=== PATIENT | female | born 1940 | race Two or more races ===

== ENCOUNTER 2019-04-06 06:37 | Inpatient (IN) | payer MEDICARE, MEDICAID ==
[~2019-04-06] VITALS: Ht 157.5 cm; Wt 64.9 kg
[2019-04-06] MEDS ORDERED: ASPIR 8181 MG ORAL (06:45)
[2019-04-06] MEDS ORDERED: PROPRANOLOL HCL40 MG ORAL (06:45)
[2019-04-06] MEDS ORDERED: LOSARTAN-HCTZ1 EACH ORAL (06:45)
[2019-04-06] MEDS ORDERED: ADALAT20 MG ORAL (06:45)
[2019-04-06 06:55] VITALS: BP 214/82
[2019-04-06] MEDS ORDERED: Albuterol ud Inhalation HHN ONE (07:00)
[2019-04-06] MEDS ORDERED: Aspirin Baby 81mg ORAL ONE (07:00)
[2019-04-06] MEDS ORDERED: Nitroglycerin Subl 0.4mg tab SL PRN (07:00)
[2019-04-06] MEDS ORDERED: Ipratropium 0.02% Inh Soln 2.5ml UD HHN ONE (07:00)
[2019-04-06] MEDS ORDERED: Metoprolol 5mg/5ml Inj IVP ONE (07:00)
[2019-04-06 07:18] LABS: BASOPHILS % (AUTO) 1.1 % (0.0-2.0); EOSINOPHILS % (AUTO) 1.9 % (0.0-3.0); HEMATOCRIT 37.1 % (37.0-47.0); HEMOGLOBIN 11.5 G/DL (12.0-16.0); MEAN CORPUSCULAR VOLUME 80 FL (80-99); MONOCYTES % (AUTO) 4.1 % (1.0-10.0); PLATELET COUNT 396 K/UL (150-450); RED BLOOD COUNT 4.62 M/UL (4.20-5.40); RED CELL DISTRIBUTION WIDTH 15.4 % (11.6-14.8); WHITE BLOOD COUNT 12.3 K/UL (4.8-10.8)
--- NOTE | 2019-04-06 07:18 | NUR ---
ER Nurse Note: Pt came from home with daughter c/o high blood pressure, chest pain, and difficulty breathing. Per daughter, pt had symptoms "for a while" but got worse 04/06 in AM. Pt BP at triage is >200/>100. Pt ambulatory. SLIV LT AC, patent. Labs sent; awaiting results. RT at bedside, breathing treatment administered. Endorsed care to oncoming shift for continutiy of care.
[2019-04-06 07:27] LABS: ANION GAP 8 mmol/L (5-15); BLOOD UREA NITROGEN 18 mg/dL (7-18); CALCIUM 9.4 MG/DL (8.5-10.1); CARBON DIOXIDE 24 MMOL/L (21-32); CHLORIDE 107 MMOL/L (98-107); SODIUM 139 MMOL/L (136-145)
--- NOTE | 2019-04-06 07:29 | Emergency Room Report ---
History of Present Illness General Chief Complaint: Hypertension Source: Patient Present Illness HPI Patient is a 78-year-old female presented after increased chest discomfort as well as shortness of breath since last night. Patient reports having increased orthopnea as well as choking sensation. She had prior history of valvular heart disease and had prior open heart surgery. Patient had been noted to be taking multiple medications for hypertension. She denies taking diuretics in the past. She reports having increased chest discomfort. She denies being a smoker. She states that she had been having shortness of breath throughout the night. She denies any leg pain or swelling. Allergies: Coded Allergies: No Known Allergies (Unverified , 04/06/19) Patient History Past Medical History: see triage record Reviewed Nursing Documentation: PMH: Agreed; PSxH: Agreed Nursing Documentation-PMH Past Medical History: No History, Except For Hx Hypertension: Yes Review of Systems Gastrointestinal: Reports: abdominal pain - epigastric pain Musculoskeletal: Reports: muscle pain - right shoulder All Other Systems: negative except mentioned in HPI Physical Exam Vital Signs Date Time Temp Pulse Resp B/P (MAP) Pulse Ox O2 Delivery O2 Flow Rate FiO2 04/06/19 06:39 98.4 86 18 214/82 (126) 95 Room Air Sp02 EP Interpretation: reviewed, normal General Appearance: normal inspection, no apparent distress, alert, GCS 15, Chronically Ill Head: atraumatic ENT: normal ENT inspection, hearing grossly normal, normal voice Neck: normal inspection, full range of motion, supple, no bony tend Respiratory: normal inspection, normal breath sounds, no respiratory distress, no retraction, no wheezing, crackles Cardiovascular #1: regular rate, rhythm, no edema Gastrointestinal: normal inspection, normal bowel sounds, non tender, soft, no guarding, no hernia Genitourinary: no CVA tenderness Musculoskeletal: normal inspection, back normal, normal range of motion Neurologic: normal inspection, alert, oriented x3, responsive, tool machine set up operator III-XII nml as tested, speech normal Psychiatric: normal inspection, judgement/insight normal, mood/affect normal Medical Decision Making Diagnostic Impression: Primary Impression: Chest pain Additional Impressions: CHF (congestive heart failure) Valvular heart disease Abnormal LFTs (liver function tests) ER Course Patient presented for chest pain shortness of breath. Differential diagnosis include was not limited to congestive heart failure, pneumonia, aortic dissection, cholecystitis, among others. because of complexity of patient's case laboratory testing and imaging studies were ordered. Patient was given breathing treatments as well as medications for hypertension. She was given aspirin as well as nitroglycerin. She was noted to have improvement in her symptoms after medications. Patient additionally reports having some right- sided shoulder pain for approximately 1 week. This is worse with movement and appears to be muscular in nature.Chest x-ray 1 view showed cardiomegaly with slight vascular congestion possibly due to CHF. Given the patient's prior cardiac history patient will be admitted for further evaluation of chest discomfort. She was given IV Lasix due to shortness of breath and possible CHF.Patient was noted to have improvement after medications. Dr. Marcelle Lozada was contacted for [facility] for inpatient management due to panel physician. Labs Test 04/06/19 07:00 White Blood Count 12.3 K/UL (4.8-10.8) Red Blood Count 4.62 M/UL (4.20-5.40) Hemoglobin 11.5 G/DL (12.0-16.0) Hematocrit 37.1 % (37.0-47.0) Mean Corpuscular Volume 80 FL (80-99) Mean Corpuscular Hemoglobin 24.9 PG (27.0-31.0) Mean Corpuscular Hemoglobin Concent 31.0 G/DL (32.0-36.0) Red Cell Distribution Width 15.4 % (11.6-14.8) Platelet Count 396 K/UL (150-450) Mean Platelet Volume 6.3 FL (6.5-10.1) Neutrophils (%) (Auto) 83.0 % (45.0-75.0) Lymphocytes (%) (Auto) 10.0 % (20.0-45.0) Monocytes (%) (Auto) 4.1 % (1.0-10.0) Eosinophils (%) (Auto) 1.9 % (0.0-3.0) Basophils (%) (Auto) 1.1 % (0.0-2.0) Prothrombin Time 10.0 SEC (9.30-11.50) Prothromb Time International Ratio 0.9 (0.9-1.1) Activated Partial Thromboplast Time 25 SEC (23-33) D-Dimer 0.98 mg/L FEU (0.00-0.49) Sodium Level 139 MMOL/L (136-145) Potassium Level 4.0 MMOL/L (3.5-5.1) Chloride Level 107 MMOL/L (98-107) Carbon Dioxide Level 24 MMOL/L (21-32) Anion Gap 8 mmol/L (5-15) Blood Urea Nitrogen 18 mg/dL (7-18) Creatinine 1.0 MG/DL (0.55-1.30) Estimat Glomerular Filtration Rate mL/min (>60) Glucose Level 166 MG/DL (74-106) Calcium Level 9.4 MG/DL (8.5-10.1) Total Bilirubin 0.4 MG/DL (0.2-1.0) Aspartate Amino Transf (AST/SGOT) 113 U/L (15-37) Alanine Aminotransferase (ALT/SGPT) 141 U/L (12-78) Alkaline Phosphatase 141 U/L (46-116) Total Creatine Kinase 72 U/L (26-308) Creatine Kinase MB 1.4 NG/ML (0.0-3.6) Creatine Kinase MB Relative Index 1.9 Troponin I 0.093 ng/mL (0.000-0.056) Pro-B-Type Natriuretic Peptide 5831 pg/mL (0-125) Total Protein 8.0 G/DL (6.4-8.2) Albumin 3.7 G/DL (3.4-5.0) Globulin 4.3 g/dL Albumin/Globulin Ratio 0.9 (1.0-2.7) Lipase 140 U/L (73-393) EKG Diagnostic Results Rate: normal Rhythm: NSR ST Segments: no acute changes Last Vital Signs Date Time Temp Pulse Resp B/P (MAP) Pulse Ox O2 Delivery O2 Flow Rate FiO2 04/06/19 07:24 176/70 04/06/19 07:23 78 04/06/19 06:55 18 Room Air 04/06/19 06:55 98.4 95 Status: improved Disposition: ADMITTED INPATIENT Condition: Stable Yobany Benavidez MD Apr 06, 2019 07:29
[2019-04-06 07:31] LABS: INR 0.9 (0.9-1.1)
[2019-04-06 07:40] LABS: ALANINE AMINOTRANSFERASE 141 U/L (12-78); ALBUMIN 3.7 G/DL (3.4-5.0); ALBUMIN/GLOBULIN RATIO 0.9 (1.0-2.7); ALKALINE PHOSPHATASE 141 U/L (46-116); ASPARTATE AMINO TRANSFERASE 113 U/L (15-37); BILIRUBIN,TOTAL 0.4 MG/DL (0.2-1.0); CKMB 1.4 NG/ML (0.0-3.6); CREATINE KINASE 72 U/L (26-308)
[2019-04-06] MEDS ORDERED: Acetaminophen 500mg (ES) tab ORAL ONE (07:45)
--- NOTE | 2019-04-06 07:45 | Diagnostic Imaging Report ---
EXAM: XR Chest, 1 View CLINICAL HISTORY: SOB TECHNIQUE: Frontal view of the chest. COMPARISON: none FINDINGS: Moderate cardiomegaly. Aortic valvular prosthesis. Sternotomy wires. Mediastinal surgical clips. No mediastinal widening or shift. Lungs show coarse linear densities at the bilateral bases, left greater than right. No pleural effusion or pneumothorax. No focal infiltrates. Bony thorax intact. No free air under the diaphragms. IMPRESSION: Cardiomegaly without findings of overt CHF. Linear densities of the lung bases could reflect mild pulmonary vascular congestion.
--- NOTE | 2019-04-06 08:08 | NUR ---
ED Nurse Note: pt reassessed, pt denies chest pain, denies sob, pt stated the breathing treatment helped a lot. pt vss. will continue to monitor.
[2019-04-06 08:13] VITALS: BP 139/55
--- NOTE | 2019-04-06 08:45 | NUR ---
ED Nurse Note: Called Telemetry unit for report. per Marce at telemetry unit, CN has not asssigned admitting nurse yet. they will call me back.
[2019-04-06 09:05] VITALS: BP 147/54
--- NOTE | 2019-04-06 09:11 | NUR ---
ED Nurse Note: report given to JACKIE Beaver
--- NOTE | 2019-04-06 09:11 | NUR ---
ED Nurse Note: pt was tranfered to the tele floor, 205-2 with stable vs and with all belongings
[2019-04-06] MEDS ORDERED: Albuterol/Ipratropium 3ml neb HHN PRN (09:15)
[2019-04-06] MEDS ORDERED: Heparin 25,000u/D5W 500ml 500 ML IV SCH ×3 (09:15→18:02)
[2019-04-06] MEDS ORDERED: LORazepam Inj 2mg/ml 1ml IV PRN (09:15)
[2019-04-06] MEDS ORDERED: Milk of Magnesia 30ml Ud ORAL PRN (09:15)
--- NOTE | 2019-04-06 09:15 | History and Physical ---
History of Present Illness General Date patient seen: Apr 06, 2019 Reason for Hospitalization: Hypertension Present Illness HPI 78 year old female with PMH of HTN, valvular heart disease and HLD presented with complaints of chest pressure and SOB x 1 day. States symptoms started suddenly, worse when ambulating, states pressure is midsternum, nonradiating, nothing exacerbates or improves. Pt also states that SOB is worse when lying down, improved with sitting up. In [facility] chest dx with CM and pulmonary infiltrates. Pt received Lasix IV with improvement in symptoms. Allergies: Coded Allergies: No Known Allergies (Unverified , 04/06/19) Medication History Scheduled Aspirin* (Aspir 81*), 81 MG ORAL DAILY, (Reported) Losartan/Hydrochlorothiazide (Losartan-Hctz 100-12.5 Mg Tab), Unknown Dose ORAL DAILY, (Reported) Nifedipine (Nifedipine*), 20 MG ORAL EVERY 6 HOURS, (Reported) Propranolol Hcl* (Inderal*), 40 MG ORAL THREE TIMES A DAY, (Reported) Patient History Healthcare decision maker Resuscitation status Advanced Directive on File Review of Systems ROS Narrative General ROS: no weight loss or fever Psychological ROS: no depression or mood changes, no memory loss Ophthalmic ROS: no visual changes or eye irritation ENT ROS: no nasal congestion, hearing loss, dizziness Allergy and Immunology ROS: no allergic symptoms or urticaria Hematological and Lymphatic ROS: no swollen glands, unusual bleeding or bruising Endocrine ROS: no polyuria, polydipsia, weight changes, temperature intolerance Respiratory ROS: no cough, orthopnea Cardiovascular ROS: chest pressure, orthopnea Gastrointestinal ROS: no abdominal pain, change in bowel habits, or black or bloody stools Musculoskeletal ROS: no myalgias or arthralgias Neurological ROS: no TIA or stroke symptoms Dermatological ROS: no new or changing skin lesions, rashes or pruritis Physical Exam Last 24 Hour Vital Signs Date Time Temp Pulse Resp B/P (MAP) Pulse Ox O2 Delivery O2 Flow Rate FiO2 04/06/19 09:05 59 16 147/54 96 Room Air 04/06/19 08:22 98.4 04/06/19 08:13 60 16 139/55 95 Room Air 04/06/19 07:25 83 24 100 Room Air 21 04/06/19 07:24 176/70 04/06/19 07:23 78 176/70 04/06/19 07:15 71 17 99 Room Air 21 04/06/19 06:55 86 18 Room Air 04/06/19 06:55 98.4 79 18 214/82 95 Room Air 04/06/19 06:39 98.4 86 18 214/82 (126) 95 Room Air Laboratory Tests Test 04/06/19 07:00 White Blood Count 12.3 K/UL (4.8-10.8) H Red Blood Count 4.62 M/UL (4.20-5.40) Hemoglobin 11.5 G/DL (12.0-16.0) L Hematocrit 37.1 % (37.0-47.0) Mean Corpuscular Volume 80 FL (80-99) Mean Corpuscular Hemoglobin 24.9 PG (27.0-31.0) L Mean Corpuscular Hemoglobin Concent 31.0 G/DL (32.0-36.0) L Red Cell Distribution Width 15.4 % (11.6-14.8) H Platelet Count 396 K/UL (150-450) Mean Platelet Volume 6.3 FL (6.5-10.1) L Neutrophils (%) (Auto) 83.0 % (45.0-75.0) H Lymphocytes (%) (Auto) 10.0 % (20.0-45.0) L Monocytes (%) (Auto) 4.1 % (1.0-10.0) Eosinophils (%) (Auto) 1.9 % (0.0-3.0) Basophils (%) (Auto) 1.1 % (0.0-2.0) Prothrombin Time 10.0 SEC (9.30-11.50) Prothromb Time International Ratio 0.9 (0.9-1.1) Activated Partial Thromboplast Time 25 SEC (23-33) D-Dimer 0.98 mg/L FEU (0.00-0.49) H Sodium Level 139 MMOL/L (136-145) Potassium Level 4.0 MMOL/L (3.5-5.1) Chloride Level 107 MMOL/L (98-107) Carbon Dioxide Level 24 MMOL/L (21-32) Anion Gap 8 mmol/L (5-15) Blood Urea Nitrogen 18 mg/dL (7-18) Creatinine 1.0 MG/DL (0.55-1.30) Estimat Glomerular Filtration Rate mL/min (>60) Glucose Level 166 MG/DL (74-106) H Calcium Level 9.4 MG/DL (8.5-10.1) Total Bilirubin 0.4 MG/DL (0.2-1.0) Aspartate Amino Transf (AST/SGOT) 113 U/L (15-37) H Alanine Aminotransferase (ALT/SGPT) 141 U/L (12-78) H Alkaline Phosphatase 141 U/L (46-116) H Total Creatine Kinase 72 U/L (26-308) Creatine Kinase MB 1.4 NG/ML (0.0-3.6) Creatine Kinase MB Relative Index 1.9 Troponin I 0.093 ng/mL (0.000-0.056) Pro-B-Type Natriuretic Peptide 5831 pg/mL (0-125) H Total Protein 8.0 G/DL (6.4-8.2) Albumin 3.7 G/DL (3.4-5.0) Globulin 4.3 g/dL Albumin/Globulin Ratio 0.9 (1.0-2.7) L Lipase 140 U/L (73-393) Height (Feet): 5 Height (Inches): 2.00 Weight (Pounds): 140 Medications Current Medications Medications (Trade) Dose Ordered Sig/Dexter Route PRN Reason Start Time Stop Time Status Last Admin Dose Admin Nitroglycerin (Ntg) 0.4 mg Q5M PRN SL Prn Chest Pain 04/06/19 07:00 05/06/19 06:59 04/06/19 07:24 Objective Narrative General appearance: alert, cooperative, no distress, appears stated age Head: Normocephalic, without obvious abnormality, atraumatic Eyes: conjunctivae/corneas clear. PERRL, EOM's intact. Fundi benign Throat: Lips, mucosa, and tongue normal. Teeth and gums normal Neck: supple, symmetrical, trachea midline, no adenopathy, thyroid: not enlarged , symmetric, no tenderness/mass/nodules, no carotid bruit and no JVD Lungs: clear to auscultation bilaterally Heart: regular rate and rhythm, S1, S2 normal, no murmur, click, rub or gallop Abdomen: soft, non-tender. Bowel sounds normal. No masses, no organomegaly Extremities: extremities normal, atraumatic, no cyanosis, +1 b/l LEedema Pulses: 2+ and symmetric Skin: Skin color, texture, turgor normal. No rashes or lesions Neurologic: Grossly normal Assessment/Plan Assessment/Plan: Pt admitted for chest pain r/o ACS and acute CHF exacerbation #SOB likely 2/2 CHF exacerbation #Chest pain 2/2 ACS -Cardiology consulted - Dr. Lambert -Pulmonary consulted (Dr. Garcia) -serial trop and EKG - -cont tele -Cont Lasix 40mg IV daily -daily weights -i/o -fluid restriction -pending 2D echo #HTN -Cont Hyzaar 50/12.5 -hydralazine PRN Code: Agricultural Service Worker of note may not reflect time of Marcelle Jaramillo MD Apr 06, 2019 09:15
[2019-04-06 09:25] VITALS: BP 141/63
[2019-04-06] MEDS ORDERED: HYDROcodone/Acetamin 5/325 tab ORAL PRN ×2 (09:30)
--- NOTE | 2019-04-06 12:47 | Consultation ---
History of Present Illness General Date patient seen: Apr 06, 2019 Reason for Hospitalization: Hypertension Present Illness HPI This is a very pleasant 78-year-old female with multiple medical comorbidities and history of open heart surgery for valvular disease who presented to the emergency department [facility] complaining of shortness of breath, respiratory difficulty, feeling of choking. On admission patient was identified to have a leukocytosis and abnormal LFTs. Surgery called to evaluate. Patient seen, patient evaluated, chart reviewed. Patient states she did have some abdominal discomfort but has resolved now. Currently no nausea vomiting fever or chills. States that the respiratory issues have subsided with medication she was given but she does not feel 100% yet. Allergies: Coded Allergies: No Known Allergies (Unverified , 04/06/19) Medication History Scheduled Aspirin* (Aspir 81*), 81 MG ORAL DAILY, (Reported) Losartan/Hydrochlorothiazide (Losartan-Hctz 100-12.5 Mg Tab), Unknown Dose ORAL DAILY, (Reported) Nifedipine (Nifedipine*), 20 MG ORAL EVERY 6 HOURS, (Reported) Propranolol Hcl* (Inderal*), 40 MG ORAL THREE TIMES A DAY, (Reported) Patient History History Provided By: Patient, Medical Record, PMD Healthcare decision maker Resuscitation status Full Code Advanced Directive on File Past Medical/Surgical History Past Medical/Surgical History: (1) CHF (congestive heart failure) (2) Chest pain (3) Valvular heart disease (4) Abnormal LFTs (liver function tests) Review of Systems Review of Symptoms General ROS: no weight loss or fever Psychological ROS: no depression or mood changes, no memory loss Ophthalmic ROS: no visual changes or eye irritation ENT ROS: no nasal congestion, hearing loss, dizziness Allergy and Immunology ROS: no allergic symptoms or urticaria Hematological and Lymphatic ROS: no swollen glands, unusual bleeding or bruising Endocrine ROS: no polyuria, polydipsia, weight changes, temperature intolerance Respiratory ROS: no cough, shortness of breath, or wheezing Cardiovascular ROS: no chest pain or dyspnea on exertion Gastrointestinal ROS: denies abdominal pain, no bright red blood in stool. Musculoskeletal ROS: no myalgias or arthralgias Neurological ROS: no TIA or stroke symptoms Dermatological ROS: no new or changing skin lesions, rashes or pruritis Physical Exam Physical Exam General appearance: alert, cooperative, no distress, appears stated age Head: Normocephalic, without obvious abnormality, atraumatic Eyes: conjunctivae/corneas clear. PERRL, EOM's intact. Fundi benign Throat: Lips, mucosa, and tongue normal. Teeth and gums normal Neck: supple, symmetrical, trachea midline, no adenopathy, thyroid: not enlarged, symmetric, no tenderness/mass/nodules, no carotid bruit and no JVD Lungs: clear to auscultation bilaterally Heart: regular rate and rhythm, S1, S2 normal, no murmur, click, rub or gallop Abdomen: soft, non-tender. Bowel sounds normal. No masses, no organomegaly Extremities: extremities normal, atraumatic, no cyanosis or edema Pulses: 2+ and symmetric Skin: Skin color, texture, turgor normal. No rashes or lesions Neurologic: Grossly normal Last 24 Hour Vital Signs Date Time Temp Pulse Resp B/P (MAP) Pulse Ox O2 Delivery O2 Flow Rate FiO2 04/06/19 12:00 58 04/06/19 10:38 Room Air 04/06/19 09:11 98.4 59 16 147/54 96 Room Air 21 04/06/19 09:05 59 16 147/54 96 Room Air 04/06/19 08:22 98.4 04/06/19 08:13 60 16 139/55 95 Room Air 04/06/19 07:25 83 24 100 Room Air 21 04/06/19 07:24 176/70 04/06/19 07:23 78 176/70 04/06/19 07:15 71 17 99 Room Air 04/06/19 06:55 86 18 Room Air 04/06/19 06:55 98.4 79 18 214/82 95 Room Air 04/06/19 06:39 98.4 86 18 214/82 (126) 95 Room Air Laboratory Tests Test 04/06/19 07:00 04/06/19 09:45 04/06/19 11:50 White Blood Count 12.3 K/UL (4.8-10.8) H Red Blood Count 4.62 M/UL (4.20-5.40) Hemoglobin 11.5 G/DL (12.0-16.0) L Hematocrit 37.1 % (37.0-47.0) Mean Corpuscular Volume 80 FL (80-99) Mean Corpuscular Hemoglobin 24.9 PG (27.0-31.0) L Mean Corpuscular Hemoglobin Concent 31.0 G/DL (32.0-36.0) L Red Cell Distribution Width 15.4 % (11.6-14.8) H Platelet Count 396 K/UL (150-450) Mean Platelet Volume 6.3 FL (6.5-10.1) L Neutrophils (%) (Auto) 83.0 % (45.0-75.0) H Lymphocytes (%) (Auto) 10.0 % (20.0-45.0) L Monocytes (%) (Auto) 4.1 % (1.0-10.0) Eosinophils (%) (Auto) 1.9 % (0.0-3.0) Basophils (%) (Auto) 1.1 % (0.0-2.0) Prothrombin Time 10.0 SEC (9.30-11.50) Prothromb Time International Ratio 0.9 (0.9-1.1) Activated Partial Thromboplast Time 25 SEC (23-33) 26 SEC (23-33) D-Dimer 0.98 mg/L FEU (0.00-0.49) H Sodium Level 139 MMOL/L (136-145) Potassium Level 4.0 MMOL/L (3.5-5.1) Chloride Level 107 MMOL/L (98-107) Carbon Dioxide Level 24 MMOL/L (21-32) Anion Gap 8 mmol/L (5-15) Blood Urea Nitrogen 18 mg/dL (7-18) Creatinine 1.0 MG/DL (0.55-1.30) Estimat Glomerular Filtration Rate mL/min (>60) Glucose Level 166 MG/DL (74-106) H Calcium Level 9.4 MG/DL (8.5-10.1) Total Bilirubin 0.4 MG/DL (0.2-1.0) Aspartate Amino Transf (AST/SGOT) 113 U/L (15-37) H Alanine Aminotransferase (ALT/SGPT) 141 U/L (12-78) H Alkaline Phosphatase 141 U/L (46-116) H Total Creatine Kinase 72 U/L (26-308) Creatine Kinase MB 1.4 NG/ML (0.0-3.6) Creatine Kinase MB Relative Index 1.9 Troponin I 0.093 ng/mL (0.000-0.056) 0.500 ng/mL (0.000-0.056) Pro-B-Type Natriuretic Peptide 5831 pg/mL (0-125) H Total Protein 8.0 G/DL (6.4-8.2) Albumin 3.7 G/DL (3.4-5.0) Globulin 4.3 g/dL Albumin/Globulin Ratio 0.9 (1.0-2.7) L Lipase 140 U/L (73-393) Height (Feet): 5 Height (Inches): 2.00 Weight (Pounds): 140 Medications Current Medications Medications (Trade) Dose Ordered Sig/Dexter Route PRN Reason Start Time Stop Time Status Last Admin Dose Admin Acetaminophen (Tylenol) 650 mg Q4H PRN ORAL Mild Pain (Pain Scale 1-3) 04/06/19 09:15 05/06/19 09:14 Acetaminophen/ Hydrocodone Bitart ([place] 5/325) 1 tab Q6H PRN ORAL Moderate Pain (Pain Scale 4-6) 04/06/19 09:30 04/13/19 09:29 Acetaminophen/ Hydrocodone Bitart ([place] 5/325) 2 tab Q6H PRN ORAL Severe Pain (Pain Scale 7-10) 04/06/19 09:30 04/13/19 09:29 Albuterol/ Ipratropium (Albuterol/ Ipratropium) 3 ml Q6H PRN HHN Shortness of Breath 04/06/19 09:15 04/11/19 09:14 Aspirin (Ecotrin) 81 mg DAILY ORAL 04/07/19 09:00 05/07/19 08:59 Bisacodyl (Dulcolax) 10 mg DAILYPRN PRN RECTAL Constipation 04/06/19 09:15 05/06/19 09:14 Diphenhydramine HCl (Benadryl) 25 mg Q6H PRN ORAL Itching/Pruritis 04/06/19 09:15 05/06/19 09:14 Furosemide (Lasix) 40 mg DAILY IV 04/07/19 09:00 05/07/19 08:59 HCTZ/Losartan Potassium (Hyzaar 50-12.5) 2 tab DAILY ORAL 04/07/19 09:00 05/07/19 08:59 Hydralazine HCl (Apresoline) 10 mg Q4H PRN IV For High Blood Pressure 04/06/19 09:30 05/06/19 09:29 Lorazepam (Ativan 2mg/ml 1ml) 0.5 mg Q4H PRN IV For Anxiety 04/06/19 09:15 04/13/19 09:14 Magnesium Hydroxide (Mom) 30 ml HSPRN PRN ORAL Constipation 04/06/19 09:15 05/06/19 09:14 Ondansetron HCl (Zofran) 4 mg Q6H PRN IVP Nausea & Vomiting 04/06/19 09:15 05/06/19 09:14 Assessment/Plan Problem List: (1) Abnormal LFTs (liver function tests) Assessment & Plan: This is a 78-year-old female with history as per HPI who was identified to have a leukocytosis and abnormal LFTs. She did have abdominal discomfort which has since resolved. Currently no nausea vomiting fever chills. Normal bowel movements and passing flatus. Etiology of abnormal LFTs unknown. AST ALT alk phos elevated but T bili normal. Potentially medication related versus hepatic/biliary. Recommend ultrasound abdomen to evaluate liver and biliary tree IV fluids Antibiotics as per infectious disease Pending micro Trend labs We will follow with recommendations Thank you for this consultation allowing me to participate in patient's care ICD Codes: R94.5 - Abnormal results of liver function studies SNOMED: 431565849 (2) Valvular heart disease ICD Codes: I38 - Endocarditis, valve unspecified SNOMED: 899966 (3) CHF (congestive heart failure) ICD Codes: I50.9 - Heart failure, unspecified SNOMED: 39214417 (4) Chest pain ICD Codes: R07.9 - Chest pain, unspecified SNOMED: 24570600 Skip Cm Apr 06, 2019 12:47
--- NOTE | 2019-04-06 12:56 | NUR ---
NURSE NOTES: notified Dr. Jaramillo of troponin level. Per Dr. Jaramillo repeat troponin in 4 hours with ekg
--- NOTE | 2019-04-06 15:06 | NUR ---
CASE MANAGEMENT: INITIAL REVIEW 78 YO F PRESENTED TO OUR ED FROM HOME CC: SOB. GENERALIZED PRESSURE ON HER CHEST PMHx: HTN. open heart surgery for valvular disease. SI:CP. POSSIBLE CHF. T 98.4 HR 86 RR 18 B/P 214/82 SATS 95% ON RA WBC 12.3 GLU 166 AST 113 ALT 141 ALP 141 TROPONIN 0.093 AND 0.5 BNP 5831 IS: DUO NEB HHN X1 ASA PO X1 NITRO SL X1 LOPRESSOR IV X1 LASIX IV X1 CXR IMPRESSION: Cardiomegaly without findings of overt CHF. Linear densities of the lung bases could reflect mild pulmonary vascular congestion. PATIENT ADMITTED TO TELE 04/06/2019 @ 0937 DCP: PATIENT TO BE DISCHARGED TO HOME ONCE MEDICALLY CLEARED. PLAN OF CARE: 2D ECHO 25-30% CARDIO EVAL ID EVAL Addendum: 04/06/19 at 1832 by Ira Gore CM [employer]
[2019-04-06 16:00] VITALS: BP 135/58
--- NOTE | 2019-04-06 16:12 | Consultation ---
History of Present Illness General Date patient seen: Apr 06, 2019 Reason for Hospitalization: Hypertension Present Illness HPI 78-year-old female with multiple medical comorbidities and history of open heart surgery for valvular disease who presented to the emergency department [facility] complaining of shortness of breath, respiratory difficulty, feeling of choking. On admission patient was identified to have a leukocytosis and abnormal LFTs. Surgery called to evaluate. Patient seen, patient evaluated, chart reviewed. Patient states she did have some abdominal discomfort but has resolved now. Reports right sided neck pain radiating to shoulder Allergies: Coded Allergies: No Known Allergies (Unverified , 04/06/19) Medication History Scheduled Aspirin* (Aspir 81*), 81 MG ORAL DAILY, (Reported) Losartan/Hydrochlorothiazide (Losartan-Hctz 100-12.5 Mg Tab), Unknown Dose ORAL DAILY, (Reported) Nifedipine (Nifedipine*), 20 MG ORAL EVERY 6 HOURS, (Reported) Propranolol Hcl* (Inderal*), 40 MG ORAL THREE TIMES A DAY, (Reported) Patient History Healthcare decision maker Resuscitation status Full Code Advanced Directive on File Review of Systems Review of Symptoms General ROS: no weight loss or fever Psychological ROS: no depression or mood changes, no memory loss Ophthalmic ROS: no visual changes or eye irritation ENT ROS: no nasal congestion, hearing loss, dizziness Allergy and Immunology ROS: no allergic symptoms or urticaria Hematological and Lymphatic ROS: no swollen glands, unusual bleeding or bruising Endocrine ROS: no polyuria, polydipsia, weight changes, temperature intolerance Respiratory ROS: no cough, shortness of breath, or wheezing Cardiovascular ROS: no chest pain or dyspnea on exertion Gastrointestinal ROS: denies abdominal pain, bright red blood in stool. Musculoskeletal ROS: no myalgias or arthralgias Neurological ROS: no TIA or stroke symptoms Dermatological ROS: no new or changing skin lesions, rashes or pruritis Physical Exam Physical Exam General appearance: alert, cooperative, no distress, appears stated age Head: Normocephalic, without obvious abnormality, atraumatic Eyes: conjunctivae/corneas clear. PERRL, EOM's intact. Fundi benign Throat: Lips, mucosa, and tongue normal. Teeth and gums normal Neck: supple, symmetrical, trachea midline, no adenopathy, thyroid: not enlarged, symmetric, no tenderness/mass/nodules, no carotid bruit and no JVD Lungs: clear to auscultation bilaterally Heart: regular rate and rhythm, S1, S2 normal, no murmur, click, rub or gallop Abdomen: soft, non-tender. Bowel sounds normal. No masses, no organomegaly Extremities: extremities normal, atraumatic, no cyanosis or edema Pulses: 2+ and symmetric Skin: Skin color, texture, turgor normal. No rashes or lesions Neurologic: Grossly normal Last 24 Hour Vital Signs Date Time Temp Pulse Resp B/P (MAP) Pulse Ox O2 Delivery O2 Flow Rate FiO2 04/06/19 12:00 58 04/06/19 10:38 Room Air 04/06/19 09:11 98.4 59 16 147/54 96 Room Air 21 04/06/19 09:05 59 16 147/54 96 Room Air 04/06/19 08:22 98.4 04/06/19 08:13 60 16 139/55 95 Room Air 04/06/19 07:25 83 24 100 Room Air 04/06/19 07:24 176/70 04/06/19 07:23 78 176/70 04/06/19 07:15 71 17 99 Room Air 04/06/19 06:55 86 18 Room Air 04/06/19 06:55 98.4 79 18 214/82 95 Room Air 04/06/19 06:39 98.4 86 18 214/82 (126) 95 Room Air Laboratory Tests Test 04/06/19 07:00 04/06/19 09:45 04/06/19 11:50 04/06/19 15:50 White Blood Count 12.3 K/UL (4.8-10.8) H Red Blood Count 4.62 M/UL (4.20-5.40) Hemoglobin 11.5 G/DL (12.0-16.0) L Hematocrit 37.1 % (37.0-47.0) Mean Corpuscular Volume 80 FL (80-99) Mean Corpuscular Hemoglobin 24.9 PG (27.0-31.0) L Mean Corpuscular Hemoglobin Concent 31.0 G/DL (32.0-36.0) L Red Cell Distribution Width 15.4 % (11.6-14.8) H Platelet Count 396 K/UL (150-450) Mean Platelet Volume 6.3 FL (6.5-10.1) L Neutrophils (%) (Auto) 83.0 % (45.0-75.0) H Lymphocytes (%) (Auto) 10.0 % (20.0-45.0) L Monocytes (%) (Auto) 4.1 % (1.0-10.0) Eosinophils (%) (Auto) 1.9 % (0.0-3.0) Basophils (%) (Auto) 1.1 % (0.0-2.0) Prothrombin Time 10.0 SEC (9.30-11.50) Prothromb Time International Ratio 0.9 (0.9-1.1) Activated Partial Thromboplast Time 25 SEC (23-33) 26 SEC (23-33) D-Dimer 0.98 mg/L FEU (0.00-0.49) H Sodium Level 139 MMOL/L (136-145) Potassium Level 4.0 MMOL/L (3.5-5.1) Chloride Level 107 MMOL/L (98-107) Carbon Dioxide Level 24 MMOL/L (21-32) Anion Gap 8 mmol/L (5-15) Blood Urea Nitrogen 18 mg/dL (7-18) Creatinine 1.0 MG/DL (0.55-1.30) Estimat Glomerular Filtration Rate mL/min (>60) Glucose Level 166 MG/DL (74-106) H Calcium Level 9.4 MG/DL (8.5-10.1) Total Bilirubin 0.4 MG/DL (0.2-1.0) Aspartate Amino Transf (AST/SGOT) 113 U/L (15-37) H Alanine Aminotransferase (ALT/SGPT) 141 U/L (12-78) H Alkaline Phosphatase 141 U/L (46-116) H Total Creatine Kinase 72 U/L (26-308) Creatine Kinase MB 1.4 NG/ML (0.0-3.6) Creatine Kinase MB Relative Index 1.9 Troponin I 0.093 ng/mL (0.000-0.056) 0.500 ng/mL (0.000-0.056) Pending Pro-B-Type Natriuretic Peptide 5831 pg/mL (0-125) H Total Protein 8.0 G/DL (6.4-8.2) Albumin 3.7 G/DL (3.4-5.0) Globulin 4.3 g/dL Albumin/Globulin Ratio 0.9 (1.0-2.7) L Lipase 140 U/L (73-393) Height (Feet): 5 Height (Inches): 2.00 Weight (Pounds): 140 Medications Current Medications Medications (Trade) Dose Ordered Sig/Dexter Route PRN Reason Start Time Stop Time Status Last Admin Dose Admin Acetaminophen (Tylenol) 650 mg Q4H PRN ORAL Mild Pain (Pain Scale 1-3) 04/06/19 09:15 05/06/19 09:14 Acetaminophen/ Hydrocodone Bitart ([place] 5/325) 1 tab Q6H PRN ORAL Moderate Pain (Pain Scale 4-6) 04/06/19 09:30 04/13/19 09:29 Acetaminophen/ Hydrocodone Bitart ([place] 5/325) 2 tab Q6H PRN ORAL Severe Pain (Pain Scale 7-10) 04/06/19 09:30 04/13/19 09:29 Albuterol/ Ipratropium (Albuterol/ Ipratropium) 3 ml Q6H PRN HHN Shortness of Breath 04/06/19 09:15 04/11/19 09:14 Aspirin (Ecotrin) 81 mg DAILY ORAL 04/07/19 09:00 05/07/19 08:59 Bisacodyl (Dulcolax) 10 mg DAILYPRN PRN RECTAL Constipation 04/06/19 09:15 05/06/19 09:14 Diphenhydramine HCl (Benadryl) 25 mg Q6H PRN ORAL Itching/Pruritis 04/06/19 09:15 05/06/19 09:14 Furosemide (Lasix) 40 mg DAILY IV 04/07/19 09:00 05/07/19 08:59 HCTZ/Losartan Potassium (Hyzaar 50-12.5) 2 tab DAILY ORAL 04/07/19 09:00 05/07/19 08:59 Hydralazine HCl (Apresoline) 10 mg Q4H PRN IV For High Blood Pressure 04/06/19 09:30 05/06/19 09:29 Lorazepam (Ativan 2mg/ml 1ml) 0.5 mg Q4H PRN IV For Anxiety 04/06/19 09:15 04/13/19 09:14 Magnesium Hydroxide (Mom) 30 ml HSPRN PRN ORAL Constipation 04/06/19 09:15 05/06/19 09:14 Ondansetron HCl (Zofran) 4 mg Q6H PRN IVP Nausea & Vomiting 04/06/19 09:15 05/06/19 09:14 Assessment/Plan Problem List: (1) CHF (congestive heart failure) ICD Codes: I50.9 - Heart failure, unspecified SNOMED: 30112907 (2) Chest pain ICD Codes: R07.9 - Chest pain, unspecified SNOMED: 77348579 (3) Valvular heart disease ICD Codes: I38 - Endocarditis, valve unspecified SNOMED: 537586 (4) Abnormal LFTs (liver function tests) ICD Codes: R94.5 - Abnormal results of liver function studies SNOMED: 950593389 Assessment/Plan: Acute encephalopathy - likely metabolic rule out hepatic Neck spasms Work up ongoing Delirium precautions Monitor BUN, LFTs MIPS Hospital declaration INPATIENT level of care is warranted for this patient because patient is a 89 year old with who presents with suspicion of . I have a high level of concern because . Patient is at high risk for . Plan of care/treatment include . Patient care is expected to be greater than 2 midnights. OBSERVATION level of care is warranted for this patient. Patient is a 89 year old with who presents with . Patient will be admitted for 1 midnight, but if additional night(s) is/are necessary, patient will be converted to inpatient status for the entire hospitalization Disposition: Once the patient is stable to leave the hospital, I anticipate the patient will likely be discharged to the following environment: Estimated discharge date: I spent 70 minutes on this patient's case, and minutes was dedicated to counseling and/or care coordination. MIPS (Merit-based Incentive Payment System) Applicable CPT: 37708, 38576 CHECK ALL THAT ARE MET: Measure #5 (CHF): All ages. Prescribe MARCO/ARB upon discharge for patients with left ventricular systolic dysfunction. If not, the reason is clearly documented in the medical chart. Measure #8 (CHF): All ages. Prescribe a beta frank upon discharge for patients with left ventricular systolic dysfunction. If not, the reason is clearly documented in the medical chart. Measure #47 Advance care plan or surrogate decision maker documented in the medical record. Measure #130 The provider has documented, updated, or reviewed the patients current medication list and has documented it in the patients note. Measure #374 (All): Send report to referring provider. Measure #407(Sepsis due to MSSA bacteremia): Age 18+ Patient treated with a beta-lactam antibiotic (Nafcillin, Oxacillin or Cefazolin) as definitive therapy. MEDICAL COMPLEXITY High complexity medical decision making (need 2/3 categories) Problem - need 4 points Acute/new problem with new plan for workup (4 points, 1 max) Acute/new problem without additional workup (3 points, 1 max) Unstable chronic problem actively being managed (2 point each, 2 max) Stable chronic problem actively being managed (1 point each, 2 max) Self-limited/transient process (constipation, muscle ache, etc) (1 point each , 2 max) Data - need 4 points Reviewed labs/imaging studies (1 points, 2 max) Independent review of imaging (EKG, xrays, etc) (2 points, 2 max) Discussed case with consult/other MD/RN (2 points, 2 max) High Risk - qualify if have one of the following: Severe exacerbation of acute problem, acute mental status change, IV narcotics , monitoring drug levels (vancomycin, INR, tacrolimus etc) Jj Herrera MD Apr 06, 2019 16:12
--- NOTE | 2019-04-06 16:51 | NUR ---
NURSE NOTES: Notified Dr. Lambert and Dr. Jaramillo of patients troponin level. Will await new orders
--- NOTE | 2019-04-06 17:30 | NUR ---
NURSE NOTES: Received orders from Dr. Lambert. Start pt on hep drip with no bolus. Orders noted and carried out.
--- NOTE | 2019-04-06 18:30 | Consultation ---
DATE OF CONSULTATION: 04/06/2019 PULMONARY CONSULTATION CONSULTING PHYSICIAN: Nas Garcia M.D. HISTORY OF PRESENT ILLNESS: This is a 78-year-old female, who came to the emergency room last night with complaints of chest discomfort. She also reports shortness of breath. The patient states she was having difficulty while lying flat. She also reported a throat discomfort almost like a choking sensation. The patient reports that she has previously had a heart surgery and I believe she has had her valve replaced as well. She is also known to be a known hypertensive and is taking medications. The patient denies any tobacco use or pulmonary issues such as asthma or COPD. ALLERGIES: None. PAST MEDICAL HISTORY: Discussed above, notable for hypertension, previous cardiac surgery, valvular heart disease. There is no history of pulmonary conditions. HOME MEDICATIONS/CURRENT MEDICATIONS: Include aspirin, HCTZ, losartan, Lasix, Lillian, hydralazine p.r.n, albuterol, and Ativan. REVIEW OF SYSTEMS: Denies any headaches, hematemesis, melena, hematochezia, or weight loss. PHYSICAL EXAMINATION: GENERAL: Reveals a 78-year-old female. VITAL SIGNS: Earlier she was markedly hypertensive, currently blood pressure is 140/50, heart rate 60, and respirations 18. O2 saturation on room air. HEENT: Unremarkable. LUNGS: Shows decreased breath sounds bilaterally with normal heart sounds. ABDOMEN: Soft. EXTREMITIES: There is no edema. LABORATORY DATA: Lab testing shows white count 12,000. Remainder of labs unremarkable. She has elevated AST, ALT, and alkaline phosphatase. Troponin is 0.09. IMAGING STUDIES: The patient underwent a chest x-ray, which shows aortic valve prosthesis and sternotomy wires. There is cardiomegaly and findings suggestive of vascular congestion. IMPRESSION: 1. Pulmonary edema. 2. Valvular heart disease. 3. Previous sternotomy. 4. Hypertension. DISCUSSION: Admit to the hospital. Agree with present management and care. The patient will need increased diuretics. Currently, she has also abnormal LFTs and she would benefit from a GI evaluation. We will follow as pressure dispatcher. Agree with current use of Lasix. She is presently on 40 mg IV daily, which is appropriate. We will request ultrasound of the abdomen. I will follow carefully. Nas Garcia M.D. DR: DEVIN JOB#: [id number] CC:
--- NOTE | 2019-04-06 19:55 | NUR ---
HAND-OFF: Report given to JACKIE Granado. Plan of care endorsed
--- NOTE | 2019-04-06 19:56 | NUR ---
NURSE NOTES: Got report from Sridevi MEJIA. Pt in stable condiiton. Denies any pain. No s/s of distress or discomfort noted. Pt resting in bed comfortably. Bed in low and locked position, call light within reach, bedside table within reach. Continue to monitor.
[2019-04-06 20:00] VITALS: BP 159/76
--- NOTE | 2019-04-06 23:19 | Consultation ---
History of Present Illness General Date patient seen: Apr 06, 2019 Time patient seen: 23:13 Chief Complaint: Hypertension Present Illness HPI Pt came from home with daughter c/o high blood pressure, chest pain, and difficulty breathing. Cardiology consulted for elevated Troponin. Echo with severe systolic dysfunction. Heparin gtt started. CXR with cardiomegaly and pulmonary infiltrates. Allergies: Coded Allergies: No Known Allergies (Unverified , 04/06/19) Medication History Scheduled Aspirin* (Aspir 81*), 81 MG ORAL DAILY, (Reported) Losartan/Hydrochlorothiazide (Losartan-Hctz 100-12.5 Mg Tab), Unknown Dose ORAL DAILY, (Reported) Nifedipine (Nifedipine*), 20 MG ORAL EVERY 6 HOURS, (Reported) Propranolol Hcl* (Inderal*), 40 MG ORAL THREE TIMES A DAY, (Reported) Patient History Healthcare decision maker Resuscitation status Full Code Advanced Directive on File Review of Systems Constitutional: Reports: no symptoms ENT: Reports: no symptoms Respiratory: Reports: shortness of breath, [place] Cardiovascular: Reports: chest pain Gastrointestinal: Reports: no symptoms Genitourinary: Reports: no symptoms Musculoskeletal: Reports: no symptoms Skin: Reports: no symptoms Psychiatric: Reports: no symptoms Neurological: Reports: no symptoms Endocrine: Reports: no symptoms Hematologic/Lymphatic: Reports: no symptoms Physical Exam General Appearance: no apparent distress, alert Lines, tubes and drains: peripheral HEENT: normocephalic, atraumatic, anicteric, mucous membranes moist, PERRL Neck: non-tender, normal alignment, supple, normal inspection Respiratory/Chest: chest wall non-tender, lungs clear, normal breath sounds Cardiovascular/Chest: normal peripheral pulses, normal rate Abdomen: normal bowel sounds, non tender Extremities: normal range of motion, non-tender, normal inspection, no calf tenderness, normal capillary refill, non-pitting Skin Exam: normal pigmentation, warm/dry, cyanotic Neurologic: cell reliner II-XII grossly normal, no motor/sensory deficits Last 24 Hour Vital Signs Date Time Temp Pulse Resp B/P (MAP) Pulse Ox O2 Delivery O2 Flow Rate FiO2 04/06/19 23:07 Room Air 04/06/19 20:49 89 18 95 Room Air 21 04/06/19 20:00 61 04/06/19 20:00 97.9 84 18 159/76 (103) 96 7/28/19 16:00 97.3 60 22 135/58 (83) 95 04/06/19 16:00 59 04/06/19 12:00 58 04/06/19 10:38 Room Air 04/06/19 09:25 98.4 58 16 141/63 (89) 98 04/06/19 09:11 98.4 59 16 147/54 96 Room Air 21 04/06/19 09:05 59 16 147/54 96 Room Air 04/06/19 08:22 98.4 04/06/19 08:13 60 16 139/55 95 Room Air 04/06/19 07:25 83 24 100 Room Air 21 04/06/19 07:24 176/70 04/06/19 07:23 78 176/70 04/06/19 07:15 71 17 99 Room Air 04/06/19 06:55 86 18 Room Air 04/06/19 06:55 98.4 79 18 214/82 95 Room Air 04/06/19 06:39 98.4 86 18 214/82 (126) 95 Room Air Laboratory Tests Test 04/06/19 07:00 04/06/19 09:45 04/06/19 11:50 04/06/19 15:50 White Blood Count 12.3 K/UL (4.8-10.8) H Red Blood Count 4.62 M/UL (4.20-5.40) Hemoglobin 11.5 G/DL (12.0-16.0) L Hematocrit 37.1 % (37.0-47.0) Mean Corpuscular Volume 80 FL (80-99) Mean Corpuscular Hemoglobin 24.9 PG (27.0-31.0) L Mean Corpuscular Hemoglobin Concent 31.0 G/DL (32.0-36.0) L Red Cell Distribution Width 15.4 % (11.6-14.8) H Platelet Count 396 K/UL (150-450) Mean Platelet Volume 6.3 FL (6.5-10.1) L Neutrophils (%) (Auto) 83.0 % (45.0-75.0) H Lymphocytes (%) (Auto) 10.0 % (20.0-45.0) L Monocytes (%) (Auto) 4.1 % (1.0-10.0) Eosinophils (%) (Auto) 1.9 % (0.0-3.0) Basophils (%) (Auto) 1.1 % (0.0-2.0) Prothrombin Time 10.0 SEC (9.30-11.50) Prothromb Time International Ratio 0.9 (0.9-1.1) Activated Partial Thromboplast Time 25 SEC (23-33) 26 SEC (23-33) D-Dimer 0.98 mg/L FEU (0.00-0.49) H Sodium Level 139 MMOL/L (136-145) Potassium Level 4.0 MMOL/L (3.5-5.1) Chloride Level 107 MMOL/L (98-107) Carbon Dioxide Level 24 MMOL/L (21-32) Anion Gap 8 mmol/L (5-15) Blood Urea Nitrogen 18 mg/dL (7-18) Creatinine 1.0 MG/DL (0.55-1.30) Estimat Glomerular Filtration Rate mL/min (>60) Glucose Level 166 MG/DL (74-106) H Calcium Level 9.4 MG/DL (8.5-10.1) Total Bilirubin 0.4 MG/DL (0.2-1.0) Aspartate Amino Transf (AST/SGOT) 113 U/L (15-37) H Alanine Aminotransferase (ALT/SGPT) 141 U/L (12-78) H Alkaline Phosphatase 141 U/L (46-116) H Total Creatine Kinase 72 U/L (26-308) Creatine Kinase MB 1.4 NG/ML (0.0-3.6) Creatine Kinase MB Relative Index 1.9 Troponin I 0.093 ng/mL (0.000-0.056) 0.500 ng/mL (0.000-0.056) 0.668 ng/mL (0.000-0.056) Pro-B-Type Natriuretic Peptide 5831 pg/mL (0-125) H Total Protein 8.0 G/DL (6.4-8.2) Albumin 3.7 G/DL (3.4-5.0) Globulin 4.3 g/dL Albumin/Globulin Ratio 0.9 (1.0-2.7) L Lipase 140 U/L (73-393) Height (Feet): 5 Height (Inches): 2.00 Weight (Pounds): 140 Medications Current Medications Medications (Trade) Dose Ordered Sig/Dexter Route PRN Reason Start Time Stop Time Status Last Admin Dose Admin Acetaminophen (Tylenol) 650 mg Q4H PRN ORAL Mild Pain (Pain Scale 1-3) 04/06/19 09:15 05/06/19 09:14 Acetaminophen/ Hydrocodone Bitart ([place] 5/325) 1 tab Q6H PRN ORAL Moderate Pain (Pain Scale 4-6) 04/06/19 09:30 04/13/19 09:29 Acetaminophen/ Hydrocodone Bitart ([place] 5/325) 2 tab Q6H PRN ORAL Severe Pain (Pain Scale 7-10) 04/06/19 09:30 04/13/19 09:29 Albuterol/ Ipratropium (Albuterol/ Ipratropium) 3 ml Q6H PRN HHN Shortness of Breath 04/06/19 09:15 04/11/19 09:14 Aspirin (Ecotrin) 81 mg DAILY ORAL 04/07/19 09:00 05/07/19 08:59 Bisacodyl (Dulcolax) 10 mg DAILYPRN PRN RECTAL Constipation 04/06/19 09:15 05/06/19 09:14 Diphenhydramine HCl (Benadryl) 25 mg Q6H PRN ORAL Itching/Pruritis 04/06/19 09:15 05/06/19 09:14 Furosemide (Lasix) 40 mg DAILY IV 04/07/19 09:00 05/07/19 08:59 HCTZ/Losartan Potassium (Hyzaar 50-12.5) 2 tab DAILY ORAL 04/07/19 09:00 05/07/19 08:59 Heparin Sodium/ Dextrose 500 ml @ 15.566 mls/ hr ADJUST PER PROTOCOL IV 04/06/19 18:02 05/06/19 18:01 04/06/19 18:24 Hydralazine HCl (Apresoline) 10 mg Q4H PRN IV For High Blood Pressure 04/06/19 09:30 05/06/19 09:29 Lorazepam (Ativan 2mg/ml 1ml) 0.5 mg Q4H PRN IV For Anxiety 04/06/19 09:15 04/13/19 09:14 Magnesium Hydroxide (Mom) 30 ml HSPRN PRN ORAL Constipation 04/06/19 09:15 05/06/19 09:14 Ondansetron HCl (Zofran) 4 mg Q6H PRN IVP Nausea & Vomiting 04/06/19 09:15 05/06/19 09:14 Assessment/Plan Status: stable Assessment/Plan: Assessment/Plan Problem List: (1) CHF (congestive heart failure) ICD Codes: I50.9 - Heart failure, unspecified SNOMED: 38402836 (2) Chest pain ICD Codes: R07.9 - Chest pain, unspecified SNOMED: 12529277 (3) Valvular heart disease ICD Codes: I38 - Endocarditis, valve unspecified SNOMED: 169873 (4) Abnormal LFTs (liver function tests) ICD Codes: R94.5 - Abnormal results of liver function studies SNOMED: 649805958 Plan: Serial troponin Telemetry Heparin gtt TTE reviewed Will need lifevest and if LVEF does not improve ICD Recommend cardiac cath to evaluate coronary anatomy Nitro prn Aspirin statin Lasix Losartan Aldactone Coreg Jackson Lambert MD Apr 06, 2019 23:19
[2019-04-07] VITALS: BP 143/66
[2019-04-07] MEDS ORDERED: Heparin 5000 units/ml inj IV SCH (02:30)
[2019-04-07] MEDS ORDERED: Heparin 25,000u/D5W 500ml 500 ML IV SCH (02:30)
[2019-04-07 04:00] VITALS: BP 126/60
[2019-04-07 06:25] LABS: BASOPHILS % (AUTO) 1.4 % (0.0-2.0); EOSINOPHILS % (AUTO) 4.8 % (0.0-3.0); HEMATOCRIT 34.6 % (37.0-47.0); HEMOGLOBIN 10.8 G/DL (12.0-16.0); LYMPHOCYTES % (AUTO) 27.8 % (20.0-45.0); MEAN CORPUSCULAR VOLUME 80 FL (80-99); PLATELET COUNT 346 K/UL (150-450); RED BLOOD COUNT 4.35 M/UL (4.20-5.40); RED CELL DISTRIBUTION WIDTH 14.7 % (11.6-14.8)
[2019-04-07 06:36] LABS: ANION GAP 7 mmol/L (5-15); BLOOD UREA NITROGEN 15 mg/dL (7-18); CARBON DIOXIDE 29 MMOL/L (21-32); CHLORIDE 105 MMOL/L (98-107); POTASSIUM 3.3 MMOL/L (3.5-5.1); SODIUM 141 MMOL/L (136-145)
[2019-04-07] MEDS: Heparin 25,000u/D5W 500ml 500 ML IV SCH ×2 (07:01→17:06)
--- NOTE | 2019-04-07 07:30 | NUR ---
Lab called of Trop 0.266. Troponin is trending down. Made AM Nurse Karrie aware.
--- NOTE | 2019-04-07 07:31 | NUR ---
HAND-OFF: Report given to Karrie MEJIA. Endorsed plan of care.
--- NOTE | 2019-04-07 07:31 | NUR ---
NURSE NOTES: Report received from JACKIE Brothers. Patient awake. In RA. AOx4. Kiswahili speaking with minimal Burkinan. Helped to restroom. IV running Heparin. Med teaching done. Helped Patient back to bed. Bed on lowest position, side rails upx2, brakes engaged. Call light within easy reach.
[2019-04-07 08:00] VITALS: BP 145/61
--- NOTE | 2019-04-07 08:10 | NUR ---
NURSE NOTES: Left a message to Dr. Jaramillo potassium results. Waiting for a call back.
--- NOTE | 2019-04-07 08:10 | NUR ---
NURSE NOTES: Informed troponin results to Dr. Lambert.
--- NOTE | 2019-04-07 09:32 | Pulmonology Progress Note ---
Assessment/Plan Assessment/Plan IMPRESSION: 1. Pulmonary edema. 2. Valvular heart disease. 3. Previous sternotomy. 4. Hypertension. 5. Troponinemia DISCUSSION: Agree with present management and care. Continue diuretics. 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 Saturating well on RA Subjective Interval Events: Feeling better; no new problems Constitutional: Reports: no symptoms HEENT: Repors: no symptoms Respiratory: Reports: no symptoms Cardiovascular: Reports: no symptoms Gastrointestinal/Abdominal: Reports: no symptoms Genitourinary: Reports: no symptoms Neurologic: Reports: no symptoms Allergies: Coded Allergies: No Known Allergies (Unverified , 04/06/19) Objective Last 24 Hour Vital Signs Date Time Temp Pulse Resp B/P (MAP) Pulse Ox O2 Delivery O2 Flow Rate FiO2 04/07/19 08:37 60 20 96 Room Air 21 04/07/19 04:00 97.7 60 18 126/60 (82) 98 04/07/19 04:00 61 04/07/19 00:23 98.1 04/07/19 00:00 60 04/07/19 00:00 98.1 64 18 143/66 (91) 95 04/06/19 23:51 64 143/66 04/06/19 23:07 Room Air 04/06/19 20:49 89 18 95 Room Air 21 04/06/19 20:00 61 04/06/19 20:00 97.9 84 18 159/76 (103) 96 04/06/19 16:00 97.3 60 22 135/58 (83) 95 04/06/19 16:00 59 04/06/19 12:00 58 04/06/19 10:38 Room Air Intake and Output 04/06/19 04/07/19 19:00 07:00 Intake Total 0 ml 15.566 ml Balance 0 ml 15.566 ml Intake Oral 0 ml IV Total 15.566 ml # Voids 5 4 General Appearance: no acute distress HEENT: normocephalic Respiratory/Chest: chest wall non-tender, lungs clear Cardiovascular: normal peripheral pulses Abdomen: normal bowel sounds Laboratory Tests 04/06/19 09:45: Activated Partial Thromboplast Time 26 04/06/19 11:50: Troponin I 0.500H 04/06/19 15:50: Troponin I 0.668H 04/07/19 00:30: Activated Partial Thromboplast Time 34H 04/07/19 06:00: White Blood Count 7.0, Red Blood Count 4.35, Hemoglobin 10.8L, Hematocrit 34.6L , Mean Corpuscular Volume 80, Mean Corpuscular Hemoglobin 24.8L, Mean Corpuscular Hemoglobin Concent 31.2L, Red Cell Distribution Width 14.7, Platelet Count 346, Mean Platelet Volume 6.4L, Neutrophils (%) (Auto) 58.0, Lymphocytes (%) (Auto) 27.8, Monocytes (%) (Auto) 8.0, Eosinophils (%) (Auto) 4.8H, Basophils (%) (Auto) 1.4, Sodium Level 141, Potassium Level 3.3L, Chloride Level 105, Carbon Dioxide Level 29, Anion Gap 7, Blood Urea Nitrogen 15 , Creatinine 1.0, Estimat Glomerular Filtration Rate , Glucose Level 118H, Calcium Level 9.0, Troponin I 0.266H Current Medications Medications (Trade) Dose Ordered Sig/Dexter Route PRN Reason Start Time Stop Time Status Last Admin Dose Admin Acetaminophen (Tylenol) 650 mg Q4H PRN ORAL Mild Pain (Pain Scale 1-3) 04/06/19 09:15 05/06/19 09:14 04/06/19 23:53 Acetaminophen/ Hydrocodone Bitart ([place] 5/325) 1 tab Q6H PRN ORAL Moderate Pain (Pain Scale 4-6) 04/06/19 09:30 04/13/19 09:29 Acetaminophen/ Hydrocodone Bitart ([place] 5/325) 2 tab Q6H PRN ORAL Severe Pain (Pain Scale 7-10) 04/06/19 09:30 04/13/19 09:29 Albuterol/ Ipratropium (Albuterol/ Ipratropium) 3 ml Q6H PRN HHN Shortness of Breath 04/06/19 09:15 04/11/19 09:14 Aspirin (Ecotrin) 81 mg DAILY ORAL 04/07/19 09:00 05/07/19 08:59 Bisacodyl (Dulcolax) 10 mg DAILYPRN PRN RECTAL Constipation 04/06/19 09:15 05/06/19 09:14 Diphenhydramine HCl (Benadryl) 25 mg Q6H PRN ORAL Itching/Pruritis 04/06/19 09:15 05/06/19 09:14 Furosemide (Lasix) 40 mg DAILY IV 04/07/19 09:00 05/07/19 08:59 HCTZ/Losartan Potassium (Hyzaar 50-12.5) 2 tab DAILY ORAL 04/07/19 09:00 05/07/19 08:59 Heparin Sodium/ Dextrose 500 ml @ 20.755 mls/ hr ADJUST PER PROTOCOL IV 04/07/19 07:00 05/07/19 02:29 04/07/19 07:01 Hydralazine HCl (Apresoline) 10 mg Q4H PRN IV For High Blood Pressure 04/06/19 09:30 05/06/19 09:29 Lorazepam (Ativan 2mg/ml 1ml) 0.5 mg Q4H PRN IV For Anxiety 04/06/19 09:15 04/13/19 09:14 Magnesium Hydroxide (Mom) 30 ml HSPRN PRN ORAL Constipation 04/06/19 09:15 05/06/19 09:14 Ondansetron HCl (Zofran) 4 mg Q6H PRN IVP Nausea & Vomiting 04/06/19 09:15 05/06/19 09:14 Spironolactone (Aldactone) 25 mg DAILY ORAL 04/07/19 09:00 05/07/19 08:59 Nas Garcia MD Apr 07, 2019 09:32
[2019-04-07] MEDS: Spironolactone 25mg tab ORAL SCH (09:35)
[2019-04-07] MEDS: Hyzaar 12.5mg/50mg tab ORAL SCH (09:35)
--- NOTE | 2019-04-07 09:35 | Cardiology Progress Note ---
Assessment/Plan Status: stable Assessment/Plan Assessment/Plan Problem List: (1) CHF (congestive heart failure) ICD Codes: I50.9 - Heart failure, unspecified SNOMED: 62136648 (2) Chest pain ICD Codes: R07.9 - Chest pain, unspecified SNOMED: 24529631 (3) Valvular heart disease ICD Codes: I38 - Endocarditis, valve unspecified SNOMED: 147320 (4) Abnormal LFTs (liver function tests) ICD Codes: R94.5 - Abnormal results of liver function studies SNOMED: 194038276 Plan: Serial troponin -> now down trending Telemetry to evaluate for arrhythmias Heparin gtt x48 hours TTE reviewed Will need lifevest and if LVEF does not improve ICD -> notified Zoll Recommend cardiac cath to evaluate coronary anatomy Stress test prior to discharge Nitro prn Aspirin statin Lasix Losartan Aldactone Coreg Subjective Cardiovascular: Reports: no symptoms Respiratory: Reports: no symptoms Gastrointestinal/Abdominal: Reports: no symptoms Genitourinary: Reports: no symptoms Subjective No acute events, troponin has come down, no chest pain today. Heparin is running at goal. Objective Last 24 Hour Vital Signs Date Time Temp Pulse Resp B/P (MAP) Pulse Ox O2 Delivery O2 Flow Rate FiO2 04/07/19 08:37 60 20 96 Room Air 21 04/07/19 04:00 97.7 60 18 126/60 (82) 98 04/07/19 04:00 61 04/07/19 00:23 98.1 04/07/19 00:00 60 04/07/19 00:00 98.1 64 18 143/66 (91) 95 04/06/19 23:51 64 143/66 04/06/19 23:07 Room Air 04/06/19 20:49 89 18 95 Room Air 21 04/06/19 20:00 61 04/06/19 20:00 97.9 84 18 159/76 (103) 96 04/06/19 16:00 97.3 60 22 135/58 (83) 95 04/06/19 16:00 59 04/06/19 12:00 58 04/06/19 10:38 Room Air General Appearance: no apparent distress, alert EENT: PERRL/EOMI, normal ENT inspection, TMs normal, pharynx normal Neck: non-tender, normal alignment, supple, normal inspection, JVD Rhythm: NSR Cardiovascular: normal peripheral pulses, normal rate, gallop/S4 Respiratory/Chest: chest wall non-tender, lungs clear, normal breath sounds, no respiratory distress, no accessory muscle use Abdomen: normal bowel sounds, non tender, soft, no organomegaly, no mass Extremities: normal range of motion, non-tender, normal inspection, no calf tenderness, no swelling Neurologic: strip cutter II-XII grossly normal, no motor/sensory deficits Intake and Output 04/06/19 04/07/19 19:00 07:00 Intake Total 0 ml 15.566 ml Balance 0 ml 15.566 ml Intake Oral 0 ml IV Total 15.566 ml # Voids 5 4 Laboratory Tests Test 04/06/19 09:45 04/06/19 11:50 04/06/19 15:50 04/07/19 00:30 Activated Partial Thromboplast Time 26 SEC (23-33) 34 SEC (23-33) H Troponin I 0.500 ng/mL (0.000-0.056) 0.668 ng/mL (0.000-0.056) Test 04/07/19 06:00 White Blood Count 7.0 K/UL (4.8-10.8) Red Blood Count 4.35 M/UL (4.20-5.40) Hemoglobin 10.8 G/DL (12.0-16.0) L Hematocrit 34.6 % (37.0-47.0) L Mean Corpuscular Volume 80 FL (80-99) Mean Corpuscular Hemoglobin 24.8 PG (27.0-31.0) L Mean Corpuscular Hemoglobin Concent 31.2 G/DL (32.0-36.0) L Red Cell Distribution Width 14.7 % (11.6-14.8) Platelet Count 346 K/UL (150-450) Mean Platelet Volume 6.4 FL (6.5-10.1) L Neutrophils (%) (Auto) 58.0 % (45.0-75.0) Lymphocytes (%) (Auto) 27.8 % (20.0-45.0) Monocytes (%) (Auto) 8.0 % (1.0-10.0) Eosinophils (%) (Auto) 4.8 % (0.0-3.0) H Basophils (%) (Auto) 1.4 % (0.0-2.0) Sodium Level 141 MMOL/L (136-145) Potassium Level 3.3 MMOL/L (3.5-5.1) L Chloride Level 105 MMOL/L (98-107) Carbon Dioxide Level 29 MMOL/L (21-32) Anion Gap 7 mmol/L (5-15) Blood Urea Nitrogen 15 mg/dL (7-18) Creatinine 1.0 MG/DL (0.55-1.30) Estimat Glomerular Filtration Rate mL/min (>60) Glucose Level 118 MG/DL (74-106) H Calcium Level 9.0 MG/DL (8.5-10.1) Troponin I 0.266 ng/mL (0.000-0.056) Jackson Lambert MD Apr 07, 2019 09:34
[2019-04-07] MEDS: Aspirin EC 81mg tab ORAL SCH (09:36)
--- NOTE | 2019-04-07 10:15 | NUR ---
PT EVALUATION NOTE Patient seen for initial evaluation, see complete evaluation for details. Patient demonstrates independence with all functional mobility without an assistive device. Patient able to ambulate without assistive device with good balance, denies dizziness with ambulation. Skilled inpatient PT intervention not warranted, patient discharged from PT. Patient cleared to ambulate with nursing supervision as needed, Karrie MEJIA notified. Addendum: 04/07/19 at 1046 by NICKO POLLOCK PT Amended: Links added.
--- NOTE | 2019-04-07 10:21 | NUR ---
NURSE NOTES: Rhona from pharmacy, informed to continue heparin at current rate of 16u/kg/hr.
--- NOTE | 2019-04-07 10:25 | Diagnostic Imaging Report ---
Indication: Abnormal liver function tests Technique: Gomez-scale and duplex images of the upper abdomen were obtained Comparison: none Findings: Gallbladder demonstrates gallstones. No gallbladder wall thickening or pericholecystic fluid. Sonographic Summers's sign is negative. Common bile duct measures 4 mm in diameter. No intrahepatic biliary ductal dilatation. Liver demonstrates normal echogenicity, no focal abnormality. Portal vein and hepatic veins are patent. Pancreas is unremarkable. Spleen is unremarkable. Left kidney measures 9.5 cm in length. Right kidney measures 9.8 cm length. Both kidneys demonstrate normal echogenicity. 6 there is mild fullness of the left renal collecting system. No hydronephrosis on the right. No focal abnormality . Non-aneurysmal abdominal aorta . There is a small left pleural effusion incidentally noted Impression: Cholelithiasis. Negative for dilated bile ducts Small left pleural effusion Mild fullness of the left renal collecting system, significance/etiology uncertain
--- NOTE | 2019-04-07 10:31 | NUR ---
NURSE NOTES: Left floor safe for MELINDA procedure.
--- NOTE | 2019-04-07 11:59 | Surgery Progress Note ---
Surgery Progress Note Subjective Symptoms: improved, pain absent, voiding well, passing flatus Additional Comments patient states she feels better no n/v/f/c trop trending down US noted no abd or chest pain today respiratory improved. c/o constipation Objective Last 24 Hour Vital Signs Date Time Temp Pulse Resp B/P (MAP) Pulse Ox O2 Delivery O2 Flow Rate FiO2 04/07/19 09:35 145/61 04/07/19 09:00 Room Air 04/07/19 08:37 60 20 96 Room Air 21 04/07/19 08:00 96.6 60 18 145/61 (89) 96 04/07/19 08:00 60 04/07/19 04:00 97.7 60 18 126/60 (82) 98 04/07/19 04:00 61 04/07/19 00:23 98.1 04/07/19 00:00 60 04/07/19 00:00 98.1 64 18 143/66 (91) 95 04/06/19 23:51 64 143/66 04/06/19 23:07 Room Air 04/06/19 20:49 89 18 95 Room Air 21 04/06/19 20:00 61 04/06/19 20:00 97.9 84 18 159/76 (103) 96 04/06/19 16:00 97.3 60 22 135/58 (83) 95 04/06/19 16:00 59 04/06/19 12:00 58 I&O Intake and Output 04/06/19 04/07/19 19:00 07:00 Intake Total 0 ml 15.566 ml Balance 0 ml 15.566 ml Intake Oral 0 ml IV Total 15.566 ml # Voids 5 4 Cardiovascular: RSR Respiratory: clear Abdomen: soft, non-tender, present bowel sounds, non-distended Extremities: no tenderness, no cyanosis Laboratory Tests Test 04/06/19 15:50 04/07/19 00:30 04/07/19 06:00 04/07/19 09:00 Troponin I 0.668 ng/mL (0.000-0.056) 0.266 ng/mL (0.000-0.056) Activated Partial Thromboplast Time 34 SEC (23-33) H 82 SEC (23-33) H White Blood Count 7.0 K/UL (4.8-10.8) Red Blood Count 4.35 M/UL (4.20-5.40) Hemoglobin 10.8 G/DL (12.0-16.0) L Hematocrit 34.6 % (37.0-47.0) L Mean Corpuscular Volume 80 FL (80-99) Mean Corpuscular Hemoglobin 24.8 PG (27.0-31.0) L Mean Corpuscular Hemoglobin Concent 31.2 G/DL (32.0-36.0) L Red Cell Distribution Width 14.7 % (11.6-14.8) Platelet Count 346 K/UL (150-450) Mean Platelet Volume 6.4 FL (6.5-10.1) L Neutrophils (%) (Auto) 58.0 % (45.0-75.0) Lymphocytes (%) (Auto) 27.8 % (20.0-45.0) Monocytes (%) (Auto) 8.0 % (1.0-10.0) Eosinophils (%) (Auto) 4.8 % (0.0-3.0) H Basophils (%) (Auto) 1.4 % (0.0-2.0) Sodium Level 141 MMOL/L (136-145) Potassium Level 3.3 MMOL/L (3.5-5.1) L Chloride Level 105 MMOL/L (98-107) Carbon Dioxide Level 29 MMOL/L (21-32) Anion Gap 7 mmol/L (5-15) Blood Urea Nitrogen 15 mg/dL (7-18) Creatinine 1.0 MG/DL (0.55-1.30) Estimat Glomerular Filtration Rate mL/min (>60) Glucose Level 118 MG/DL (74-106) H Calcium Level 9.0 MG/DL (8.5-10.1) Plan Problems: (1) Abnormal LFTs (liver function tests) Assessment & Plan: This is a 78-year-old female with history as per HPI who was identified to have a leukocytosis and abnormal LFTs. She did have abdominal discomfort which has since resolved. Currently no nausea vomiting fever chills. Normal bowel movements and passing flatus. Etiology of abnormal LFTs unknown. AST ALT alk phos elevated but T bili normal. Potentially medication related versus hepatic/biliary. US noted Findings: Gallbladder demonstrates gallstones. No gallbladder wall thickening or pericholecystic fluid. Sonographic Summers's sign is negative. Common bile duct measures 4 mm in diameter. No intrahepatic biliary ductal dilatation. Liver demonstrates normal echogenicity, no focal abnormality. Portal vein and hepatic veins are patent. Pancreas is unremarkable. Spleen is unremarkable. Left kidney measures 9.5 cm in length. Right kidney measures 9.8 cm length. Both kidneys demonstrate normal echogenicity. 6 there is mild fullness of the left renal collecting system. No hydronephrosis on the right. No focal abnormality . Non-aneurysmal abdominal aorta . There is a small left pleural effusion incidentally no acute surgical intervention planned okay for diet from surgical standpoint appreciate cardiology input. Trend labs We will follow with recommendations Thank you for this consultation allowing me to participate in patient's care (2) Valvular heart disease (3) CHF (congestive heart failure) (4) Chest pain Skip Cm Apr 07, 2019 11:59
[2019-04-07 12:00] VITALS: BP 143/67
[2019-04-07] MEDS ORDERED: Milk of Magnesia 30ml Ud ORAL SCH (12:00)
--- NOTE | 2019-04-07 15:08 | NUR ---
CASE MANAGEMENT:REVIEW 04/07/19 SI TROPONIN LEAK. CHF W/EF 25-30% CHEST PAIN.VALVULAR DISEASE 97.3 63 18 143/67 98% ON RA H/H-10.8/34.6 K-3.3 TROPONIN(+) 0.266 AND 0.221 IS: HEPARIN GTT ASA PO QD HYZAAR PO QD IV LASIX QD ALDACTONE PO QD : TELEMETRY STATUS PLAN: STRESS TEST PRIOR TO DISCHARGE
[2019-04-07 16:00] VITALS: BP 133/68
--- NOTE | 2019-04-07 18:02 | CDS Physician Query ---
Clarification is required for compliance, coding accuracy, and to reflect severity of illness for this patient Dear Dr. Ledezma Date: _04/07/19 __ CDS Name: Chase "Heart Failure / CHF" documented in Cardiology Progress note (04/07) and H&P #SOB likely 2/2 CHF exacerbation EF: 25-35%(04/06/19) BNP: 5831 Rx Lasix IV Please Clarify: Acuity [] Acute [] Chronic [] Acute on Chronic Type [] Systolic [] Diastolic [] Systolic & Diastolic (Combined) [] Other: Present on Admission: [] Yes [] No [] Clinically Undetermined Physician signature Date Please also document in your Progress Notes and/or Discharge Summary and indicate if the condition was present on admission. MARQUITA
[2019-04-07] MEDS ORDERED: Lexiscan 0.4mg/5ml syringe IV PRN (18:45)
[2019-04-07] MEDS: Docusate 100mg cap ORAL SCH (19:07)
--- NOTE | 2019-04-07 19:45 | NUR ---
HAND-OFF: Report given to JACKIE Asencio. Patient in stable conditon. Family at bedside. Pt. aware of stress test to be done tomorrow.
--- NOTE | 2019-04-07 19:49 | General Progress Note ---
Assessment/Plan Status: stable Assessment/Plan: Pt admitted for chest pain r/o ACS and acute CHF exacerbation #Acute systolic CHF exacerbation #Chest pain 2/2 ACS -Cardiology consulted - Dr. Lambert -Pulmonary consulted (Dr. Garcia) -serial trop and EKG - now down trending -cont tele -Cont heparin gtt x 48 hours -Cont Lasix 40mg IV daily -daily weights -i/o -fluid restriction -TTE reviewed -Cont ASA, statin, losartan, aldactone and coreg -Dr. Lambert will set up lifevest -stress test in AM #HTN -Cont Hyzaar 50/12.5 -hydralazine PRN Code: [employer] of note may not reflect time of Subjective Date patient seen: Apr 07, 2019 Allergies: Coded Allergies: No Known Allergies (Unverified , 04/06/19) All Systems: reviewed and negative except above Subjective No acute overnight events, pt seen with daughter at bedside, has no complaints, states she feels better. Objective Last 24 Hour Vital Signs Date Time Temp Pulse Resp B/P (MAP) Pulse Ox O2 Delivery O2 Flow Rate FiO2 04/07/19 12:00 78 04/07/19 12:00 97.3 63 18 143/67 (92) 98 04/07/19 09:35 145/61 04/07/19 09:00 Room Air 04/07/19 08:37 60 20 96 Room Air 21 04/07/19 08:00 96.6 60 18 145/61 (89) 96 04/07/19 08:00 60 04/07/19 04:00 97.7 60 18 126/60 (82) 98 04/07/19 04:00 61 04/07/19 00:23 98.1 04/07/19 00:00 60 04/07/19 00:00 98.1 64 18 143/66 (91) 95 04/06/19 23:51 64 143/66 04/06/19 23:07 Room Air 04/06/19 20:49 89 18 95 Room Air 21 04/06/19 20:00 61 04/06/19 20:00 97.9 84 18 159/76 (103) 96 Intake and Output 04/06/19 04/07/19 18:59 06:59 Intake Total 0 ml 15.566 ml Balance 0 ml 15.566 ml Intake Oral 0 ml IV Total 15.566 ml # Voids 5 4 Laboratory Tests 04/07/19 00:30: Activated Partial Thromboplast Time 34H 04/07/19 06:00: White Blood Count 7.0, Red Blood Count 4.35, Hemoglobin 10.8L, Hematocrit 34.6L , Mean Corpuscular Volume 80, Mean Corpuscular Hemoglobin 24.8L, Mean Corpuscular Hemoglobin Concent 31.2L, Red Cell Distribution Width 14.7, Platelet Count 346, Mean Platelet Volume 6.4L, Neutrophils (%) (Auto) 58.0, Lymphocytes (%) (Auto) 27.8, Monocytes (%) (Auto) 8.0, Eosinophils (%) (Auto) 4.8H, Basophils (%) (Auto) 1.4, Sodium Level 141, Potassium Level 3.3L, Chloride Level 105, Carbon Dioxide Level 29, Anion Gap 7, Blood Urea Nitrogen 15 , Creatinine 1.0, Estimat Glomerular Filtration Rate , Glucose Level 118H, Calcium Level 9.0, Troponin I 0.266H 04/07/19 09:00: Activated Partial Thromboplast Time 82H 04/07/19 12:05: Troponin I 0.221H 04/07/19 18:08: Troponin I 0.145H Height (Feet): 5 Height (Inches): 2.00 Weight (Pounds): 140 Objective General appearance: alert, cooperative, no distress, appears stated age Head: Normocephalic, without obvious abnormality, atraumatic Eyes: conjunctivae/corneas clear. PERRL, EOM's intact. Fundi benign Throat: Lips, mucosa, and tongue normal. Teeth and gums normal Neck: supple, symmetrical, trachea midline, no adenopathy, thyroid: not enlarged , symmetric, no tenderness/mass/nodules, no carotid bruit and no JVD Lungs: clear to auscultation bilaterally Heart: regular rate and rhythm, S1, S2 normal, no murmur, click, rub or gallop Abdomen: soft, non-tender. Bowel sounds normal. No masses, no organomegaly Extremities: extremities normal, atraumatic, no cyanosis, +1 b/l LE edema Pulses: 2+ and symmetric Skin: Skin color, texture, turgor normal. No rashes or lesions Neurologic: Grossly normal Vuu,Marcelle MD Apr 07, 2019 19:49
--- NOTE | 2019-04-07 19:50 | NUR ---
NURSE NOTES: Pt received from JACKIE Yoon alert and oriented x4, primarily [place]-speaking with no acute s/s of distress noted. Iv site asymptomatic and patent on L ac 20g, connected to Heparin running at 16U/kg/hr, rate of 20.755ml/hr. Bed in lowest position, call light and belongings within reach.
[2019-04-07 20:00] VITALS: BP 151/58
--- NOTE | 2019-04-07 22:07 | Neurology Progress Note ---
Interim History Interim History Interim History more alert, no headache today. Stress test pending Review of Systems All Systems: reviewed and negative except above Objective Physical Exam Last Vital Signs Date Time Temp Pulse Resp B/P (MAP) Pulse Ox O2 Delivery O2 Flow Rate FiO2 04/07/19 20:00 98.1 62 18 151/58 (89) 99 04/07/19 09:00 Room Air 04/07/19 08:37 21 Laboratory Tests Test 04/07/19 00:30 04/07/19 06:00 04/07/19 09:00 04/07/19 12:05 Activated Partial Thromboplast Time 34 SEC (23-33) H 82 SEC (23-33) H White Blood Count 7.0 K/UL (4.8-10.8) Red Blood Count 4.35 M/UL (4.20-5.40) Hemoglobin 10.8 G/DL (12.0-16.0) L Hematocrit 34.6 % (37.0-47.0) L Mean Corpuscular Volume 80 FL (80-99) Mean Corpuscular Hemoglobin 24.8 PG (27.0-31.0) L Mean Corpuscular Hemoglobin Concent 31.2 G/DL (32.0-36.0) L Red Cell Distribution Width 14.7 % (11.6-14.8) Platelet Count 346 K/UL (150-450) Mean Platelet Volume 6.4 FL (6.5-10.1) L Neutrophils (%) (Auto) 58.0 % (45.0-75.0) Lymphocytes (%) (Auto) 27.8 % (20.0-45.0) Monocytes (%) (Auto) 8.0 % (1.0-10.0) Eosinophils (%) (Auto) 4.8 % (0.0-3.0) H Basophils (%) (Auto) 1.4 % (0.0-2.0) Sodium Level 141 MMOL/L (136-145) Potassium Level 3.3 MMOL/L (3.5-5.1) L Chloride Level 105 MMOL/L (98-107) Carbon Dioxide Level 29 MMOL/L (21-32) Anion Gap 7 mmol/L (5-15) Blood Urea Nitrogen 15 mg/dL (7-18) Creatinine 1.0 MG/DL (0.55-1.30) Estimat Glomerular Filtration Rate mL/min (>60) Glucose Level 118 MG/DL (74-106) H Calcium Level 9.0 MG/DL (8.5-10.1) Troponin I 0.266 ng/mL (0.000-0.056) 0.221 ng/mL (0.000-0.056) Test 04/07/19 18:08 Troponin I 0.145 ng/mL (0.000-0.056) Impression/Recommendations Problems: (1) CHF (congestive heart failure) (2) Chest pain (3) Valvular heart disease (4) Abnormal LFTs (liver function tests) Status: stable Diagnostic Impression Stress test [place] per cards ok to cont heparin Aspirin statin Jj Herrera MD Apr 07, 2019 22:06
[2019-04-08] VITALS (7 sets, daily range): BP systolic 145–187; BP diastolic 60–78
--- NOTE | 2019-04-08 04:47 | NUR ---
NURSE NOTES: Pt currently resting in bed, sleeping comfortably with no acute s/s of distress noted. IV site asymptomatic and patent, L ac 22g running to Heparin drip as ordered. R forearm 20g saline lock. Bed in lowest position, call light and belongings within reach.
[2019-04-08] MEDS ORDERED: Heparin 5000 units/ml inj IV SCH (05:15)
[2019-04-08] MEDS ORDERED: Heparin 25,000u/D5W 500ml 500 ML IV SCH ×2 (05:15→13:45)
[2019-04-08 06:43] LABS: BASOPHILS % (AUTO) 1.4 % (0.0-2.0); EOSINOPHILS % (AUTO) 5.2 % (0.0-3.0); HEMATOCRIT 33.6 % (37.0-47.0); HEMOGLOBIN 10.5 G/DL (12.0-16.0); LYMPHOCYTES % (AUTO) 27.5 % (20.0-45.0); MEAN CORPUSCULAR VOLUME 80 FL (80-99); PLATELET COUNT 349 K/UL (150-450); RED BLOOD COUNT 4.21 M/UL (4.20-5.40); WHITE BLOOD COUNT 6.8 K/UL (4.8-10.8)
[2019-04-08 07:29] LABS: ALANINE AMINOTRANSFERASE 63 U/L (12-78); ALBUMIN 3.1 G/DL (3.4-5.0); ALBUMIN/GLOBULIN RATIO 0.8 (1.0-2.7); ALKALINE PHOSPHATASE 104 U/L (46-116); ANION GAP 9 mmol/L (5-15); ASPARTATE AMINO TRANSFERASE 27 U/L (15-37); BILIRUBIN,TOTAL 0.3 MG/DL (0.2-1.0); BLOOD UREA NITROGEN 17 mg/dL (7-18); CALCIUM 9.2 MG/DL (8.5-10.1); CARBON DIOXIDE 27 MMOL/L (21-32); CHLORIDE 104 MMOL/L (98-107); POTASSIUM 3.8 MMOL/L (3.5-5.1); SODIUM 140 MMOL/L (136-145)
--- NOTE | 2019-04-08 07:45 | NUR ---
HAND-OFF: Report given to JACKIE Diaz.
--- NOTE | 2019-04-08 08:55 | NUR ---
NURSE NOTES: Received report from JACKIE Diaz. The patient is resting on the bed without acute distress or shortness of breath. The patient's bed in the lowest position, call light in reach, and fall and aspiration precaution reinforced. The patient is scheduled for stress test today and kept on NPO. The patient has two intact and patent IV site on L AC 22G with heparin drip and R FA 20G SL. Confirmed the heparin drip with JACKIE Diaz. The next PTT is scheduled on 1200. Will continue plan of care.
[2019-04-08] MEDS: Hyzaar 12.5mg/50mg tab ORAL SCH (09:00)
--- NOTE | 2019-04-08 09:01 | Cardiology Progress Note ---
Assessment/Plan Status: stable Assessment/Plan Assessment/Plan Problem List: (1) CHF (congestive heart failure) ICD Codes: I50.9 - Heart failure, unspecified SNOMED: 20664130 (2) Chest pain ICD Codes: R07.9 - Chest pain, unspecified SNOMED: 25757676 (3) Valvular heart disease ICD Codes: I38 - Endocarditis, valve unspecified SNOMED: 746453 (4) Abnormal LFTs (liver function tests) ICD Codes: R94.5 - Abnormal results of liver function studies SNOMED: 218282958 (5) Dilated cardiomyopathy with severe systolic dysfunction (6) Coronary artery disease (7) NSTEMI, elevated troponin Plan: Serial troponin -> now down trending Telemetry to evaluate for arrhythmias Heparin gtt x48 hours TTE reviewed Will need lifevest and if LVEF does not improve ICD -> notified Zoll Recommend cardiac cath to evaluate coronary anatomy Stress test prior to discharge Nitro prn Aspirin statin Lasix Losartan Aldactone Coreg Subjective Cardiovascular: Reports: no symptoms Respiratory: Reports: no symptoms Gastrointestinal/Abdominal: Reports: no symptoms Genitourinary: Reports: no symptoms Subjective No acute events, troponin has come down, no chest pain today. Heparin is running at goal. Plan for stress test today, if normal can d/c home Objective Last 24 Hour Vital Signs Date Time Temp Pulse Resp B/P (MAP) Pulse Ox O2 Delivery O2 Flow Rate FiO2 04/08/19 08:00 97.7 59 18 162/71 (101) 98 04/08/19 04:15 67 145/75 (98) 04/08/19 04:00 97.8 58 16 164/60 (94) 98 04/08/19 04:00 60 04/08/19 00:00 96.6 65 18 145/67 (93) 97 04/08/19 00:00 59 04/07/19 21:44 60 18 95 Room Air 21 04/07/19 21:00 Room Air 04/07/19 20:00 98.1 62 18 151/58 (89) 99 04/07/19 20:00 79 04/07/19 16:00 85 04/07/19 16:00 97.7 66 18 133/68 (89) 97 04/07/19 12:00 78 04/07/19 12:00 97.3 63 18 143/67 (92) 98 04/07/19 09:35 145/61 04/07/19 09:00 Room Air General Appearance: no apparent distress, alert EENT: PERRL/EOMI, normal ENT inspection, TMs normal, pharynx normal Neck: non-tender, normal alignment, supple, normal inspection, no JVD Rhythm: NSR Cardiovascular: normal peripheral pulses, normal rate, regular rhythm Respiratory/Chest: chest wall non-tender, lungs clear Abdomen: normal bowel sounds, non tender, no organomegaly Extremities: normal range of motion, non-tender, normal inspection 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, no motor/sensory deficits Intake and Output 04/07/19 04/08/19 19:00 07:00 Intake Total 160.755 ml 251.655 ml Balance 160.755 ml 251.655 ml Intake Oral 140 ml IV Total 20.755 ml 251.655 ml # Voids 3 6 # Bowel Movements 2 Laboratory Tests Test 04/07/19 09:00 04/07/19 12:05 04/07/19 18:08 04/08/19 00:15 Activated Partial Thromboplast Time 82 SEC (23-33) H Troponin I 0.221 ng/mL (0.000-0.056) 0.145 ng/mL (0.000-0.056) 0.156 ng/mL (0.000-0.056) Test 04/08/19 03:50 04/08/19 06:23 Activated Partial Thromboplast Time 58 SEC (23-33) H White Blood Count 6.8 K/UL (4.8-10.8) Red Blood Count 4.21 M/UL (4.20-5.40) Hemoglobin 10.5 G/DL (12.0-16.0) L Hematocrit 33.6 % (37.0-47.0) L Mean Corpuscular Volume 80 FL (80-99) Mean Corpuscular Hemoglobin 25.0 PG (27.0-31.0) L Mean Corpuscular Hemoglobin Concent 31.3 G/DL (32.0-36.0) L Red Cell Distribution Width 15.0 % (11.6-14.8) H Platelet Count 349 K/UL (150-450) Mean Platelet Volume 6.0 FL (6.5-10.1) L Neutrophils (%) (Auto) 54.0 % (45.0-75.0) Lymphocytes (%) (Auto) 27.5 % (20.0-45.0) Monocytes (%) (Auto) 12.0 % (1.0-10.0) H Eosinophils (%) (Auto) 5.2 % (0.0-3.0) H Basophils (%) (Auto) 1.4 % (0.0-2.0) Sodium Level 140 MMOL/L (136-145) Potassium Level 3.8 MMOL/L (3.5-5.1) Chloride Level 104 MMOL/L (98-107) Carbon Dioxide Level 27 MMOL/L (21-32) Anion Gap 9 mmol/L (5-15) Blood Urea Nitrogen 17 mg/dL (7-18) Creatinine 1.0 MG/DL (0.55-1.30) Estimat Glomerular Filtration Rate mL/min (>60) Glucose Level 120 MG/DL (74-106) H Calcium Level 9.2 MG/DL (8.5-10.1) Total Bilirubin 0.3 MG/DL (0.2-1.0) Aspartate Amino Transf (AST/SGOT) 27 U/L (15-37) Alanine Aminotransferase (ALT/SGPT) 63 U/L (12-78) Alkaline Phosphatase 104 U/L (46-116) Troponin I 0.133 ng/mL (0.000-0.056) Total Protein 6.9 G/DL (6.4-8.2) Albumin 3.1 G/DL (3.4-5.0) L Globulin 3.8 g/dL Albumin/Globulin Ratio 0.8 (1.0-2.7) L Lipase 115 U/L (73-393) Jackson Lambert MD Apr 08, 2019 09:01
--- NOTE | 2019-04-08 09:28 | Pulmonology Progress Note ---
Assessment/Plan Assessment/Plan IMPRESSION: 1. Pulmonary edema. 2. Valvular heart disease. 3. Previous sternotomy. 4. Hypertension. 5. Troponinemia DISCUSSION: Agree with present management and care. Continue diuretics. 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 Saturating well on RA Subjective Interval Events: Seen by cardiology; feeling well Constitutional: Reports: no symptoms HEENT: Repors: no symptoms Respiratory: Reports: no symptoms Cardiovascular: Reports: no symptoms Gastrointestinal/Abdominal: Reports: no symptoms Genitourinary: Reports: no symptoms Allergies: Coded Allergies: No Known Allergies (Unverified , 04/06/19) Objective Last 24 Hour Vital Signs Date Time Temp Pulse Resp B/P (MAP) Pulse Ox O2 Delivery O2 Flow Rate FiO2 04/08/19 08:00 97.7 59 18 162/71 (101) 98 04/08/19 04:15 67 145/75 (98) 04/08/19 04:00 97.8 58 16 164/60 (94) 98 04/08/19 04:00 60 04/08/19 00:00 96.6 65 18 145/67 (93) 97 04/08/19 00:00 59 04/07/19 21:44 60 18 95 Room Air 21 04/07/19 21:00 Room Air 04/07/19 20:00 98.1 62 18 151/58 (89) 99 04/07/19 20:00 79 04/07/19 16:00 85 04/07/19 16:00 97.7 66 18 133/68 (89) 97 04/07/19 12:00 78 04/07/19 12:00 97.3 63 18 143/67 (92) 98 04/07/19 09:35 145/61 Intake and Output 04/07/19 04/08/19 19:00 07:00 Intake Total 160.755 ml 251.655 ml Balance 160.755 ml 251.655 ml Intake Oral 140 ml IV Total 20.755 ml 251.655 ml # Voids 3 6 # Bowel Movements 2 General Appearance: no acute distress HEENT: normocephalic Respiratory/Chest: chest wall non-tender Cardiovascular: normal peripheral pulses, normal rate Abdomen: normal bowel sounds Laboratory Tests 04/07/19 12:05: Troponin I 0.221H 04/07/19 18:08: Troponin I 0.145H 04/08/19 00:15: Troponin I 0.156H 04/08/19 03:50: Activated Partial Thromboplast Time 58H 04/08/19 06:23: White Blood Count 6.8, Red Blood Count 4.21, Hemoglobin 10.5L, Hematocrit 33.6L , Mean Corpuscular Volume 80, Mean Corpuscular Hemoglobin 25.0L, Mean Corpuscular Hemoglobin Concent 31.3L, Red Cell Distribution Width 15.0H, Platelet Count 349, Mean Platelet Volume 6.0L, Neutrophils (%) (Auto) 54.0, Lymphocytes (%) (Auto) 27.5, Monocytes (%) (Auto) 12.0H, Eosinophils (%) (Auto) 5.2H, Basophils (%) (Auto) 1.4, Sodium Level 140, Potassium Level 3.8, Chloride Level 104, Carbon Dioxide Level 27, Anion Gap 9, Blood Urea Nitrogen 17, Creatinine 1.0, Estimat Glomerular Filtration Rate , Glucose Level 120H, Calcium Level 9.2, Total Bilirubin 0.3, Aspartate Amino Transf (AST/SGOT) 27, Alanine Aminotransferase (ALT/SGPT) 63, Alkaline Phosphatase 104, Troponin I 0.133H, Total Protein 6.9, Albumin 3.1L, Globulin 3.8, Albumin/Globulin Ratio 0.8L, Lipase 115 Current Medications Medications (Trade) Dose Ordered Sig/Dexter Route PRN Reason Start Time Stop Time Status Last Admin Dose Admin Acetaminophen (Tylenol) 650 mg Q4H PRN ORAL Mild Pain (Pain Scale 1-3) 04/06/19 09:15 05/06/19 09:14 04/06/19 23:53 Acetaminophen/ Hydrocodone Bitart ([place] 5/325) 1 tab Q6H PRN ORAL Moderate Pain (Pain Scale 4-6) 04/06/19 09:30 04/13/19 09:29 Acetaminophen/ Hydrocodone Bitart ([place] 5/325) 2 tab Q6H PRN ORAL Severe Pain (Pain Scale 7-10) 04/06/19 09:30 04/13/19 09:29 Albuterol/ Ipratropium (Albuterol/ Ipratropium) 3 ml Q6H PRN HHN Shortness of Breath 04/06/19 09:15 04/11/19 09:14 Aspirin (Ecotrin) 81 mg DAILY ORAL 04/07/19 09:00 05/07/19 08:59 04/07/19 09:36 Bisacodyl (Dulcolax) 10 mg DAILYPRN PRN RECTAL Constipation 04/06/19 09:15 05/06/19 09:14 Diphenhydramine HCl (Benadryl) 25 mg Q6H PRN ORAL Itching/Pruritis 04/06/19 09:15 05/06/19 09:14 Docusate Sodium (Colace) 100 mg TWICE A DAY ORAL 04/07/19 18:00 05/07/19 17:59 04/07/19 19:07 Furosemide (Lasix) 40 mg DAILY IV 04/07/19 09:00 05/07/19 08:59 04/07/19 09:36 HCTZ/Losartan Potassium (Hyzaar 50-12.5) 2 tab DAILY ORAL 04/07/19 09:00 05/07/19 08:59 04/07/19 09:35 Heparin Sodium/ Dextrose 500 ml @ 23.35 mls/ hr ADJUST PER PROTOCOL IV 04/08/19 05:15 05/07/19 02:29 04/08/19 05:49 Hydralazine HCl (Apresoline) 10 mg Q4H PRN IV For High Blood Pressure 04/06/19 09:30 05/06/19 09:29 Lorazepam (Ativan 2mg/ml 1ml) 0.5 mg Q4H PRN IV For Anxiety 04/06/19 09:15 04/13/19 09:14 Magnesium Hydroxide (Mom) 30 ml HSPRN PRN ORAL Constipation 04/06/19 09:15 05/06/19 09:14 Ondansetron HCl (Zofran) 4 mg Q6H PRN IVP Nausea & Vomiting 04/06/19 09:15 05/06/19 09:14 Regadenoson (Lexiscan) 0.4 mg ONCE PRN IV STRESS TEST 04/07/19 18:45 04/09/19 18:44 Spironolactone (Aldactone) 25 mg DAILY ORAL 04/07/19 09:00 05/07/19 08:59 04/07/19 09:35 Nas Garcia MD Apr 08, 2019 09:27
[2019-04-08] MEDS: Aspirin EC 81mg tab ORAL SCH (09:32)
[2019-04-08] MEDS: Spironolactone 25mg tab ORAL SCH (09:32)
[2019-04-08] MEDS: Docusate 100mg cap ORAL SCH ×2 (09:32→17:22)
--- NOTE | 2019-04-08 09:40 | NUR ---
NURSE NOTES: Per Dr. Lambert, do not administer Hyzaar before stress test. Carried out the order. Will continue to monitor the patient.
--- NOTE | 2019-04-08 09:53 | NUR ---
NURSE NOTES: Shekhar, nuclear weapons mechanical specialist, came up for first part of stress test. Cardiology checklist completed and two intact and patent IV line available. Per Dr. Lambert's order, 0900 Hyzaar was held prior to the procedure. Off tele will be initiated when the patient goes down for stress test. Will continue to monitor the patient. Will continue plan of care.
--- NOTE | 2019-04-08 10:08 | NUR ---
NURSE NOTES: Notified Dr. Jaramillo regarding elevated D-dimer that was done 04/06/2019. Per Dr. Jaramillo, no new order. Will continue to monitor the patient.
--- NOTE | 2019-04-08 10:54 | NUR ---
NURSE NOTES: The patient is safely back to the floor after completion of 1st step of stress test. Per Shekhar, 2nd part will be completed around 1230. Will continue plan of care.
--- NOTE | 2019-04-08 11:46 | Surgery Progress Note ---
Surgery Progress Note Subjective Additional Comments appreciate cardiology input. trop trending down states she feels well but does understand what is going on and what is needed no n/v/f/c labs okay no complaints Objective Last 24 Hour Vital Signs Date Time Temp Pulse Resp B/P (MAP) Pulse Ox O2 Delivery O2 Flow Rate FiO2 04/08/19 09:00 162/71 04/08/19 09:00 Room Air 04/08/19 08:00 61 04/08/19 08:00 97.7 59 18 162/71 (101) 98 04/08/19 04:15 67 145/75 (98) 04/08/19 04:00 97.8 58 16 164/60 (94) 98 04/08/19 04:00 60 04/08/19 00:00 96.6 65 18 145/67 (93) 97 04/08/19 00:00 59 04/07/19 21:44 60 18 95 Room Air 21 04/07/19 21:00 Room Air 04/07/19 20:00 98.1 62 18 151/58 (89) 99 04/07/19 20:00 79 04/07/19 16:00 85 04/07/19 16:00 97.7 66 18 133/68 (89) 97 04/07/19 12:00 78 04/07/19 12:00 97.3 63 18 143/67 (92) 98 I&O Intake and Output 04/07/19 04/08/19 19:00 07:00 Intake Total 160.755 ml 251.655 ml Balance 160.755 ml 251.655 ml Intake Oral 140 ml IV Total 20.755 ml 251.655 ml # Voids 3 6 # Bowel Movements 2 Cardiovascular: RSR Respiratory: clear Abdomen: soft, flat, non-tender, present bowel sounds, non-distended Extremities: no edema, no tenderness, no cyanosis Laboratory Tests Test 04/07/19 12:05 04/07/19 18:08 04/08/19 00:15 04/08/19 03:50 Troponin I 0.221 ng/mL (0.000-0.056) 0.145 ng/mL (0.000-0.056) 0.156 ng/mL (0.000-0.056) Activated Partial Thromboplast Time 58 SEC (23-33) H Test 04/08/19 06:23 White Blood Count 6.8 K/UL (4.8-10.8) Red Blood Count 4.21 M/UL (4.20-5.40) Hemoglobin 10.5 G/DL (12.0-16.0) L Hematocrit 33.6 % (37.0-47.0) L Mean Corpuscular Volume 80 FL (80-99) Mean Corpuscular Hemoglobin 25.0 PG (27.0-31.0) L Mean Corpuscular Hemoglobin Concent 31.3 G/DL (32.0-36.0) L Red Cell Distribution Width 15.0 % (11.6-14.8) H Platelet Count 349 K/UL (150-450) Mean Platelet Volume 6.0 FL (6.5-10.1) L Neutrophils (%) (Auto) 54.0 % (45.0-75.0) Lymphocytes (%) (Auto) 27.5 % (20.0-45.0) Monocytes (%) (Auto) 12.0 % (1.0-10.0) H Eosinophils (%) (Auto) 5.2 % (0.0-3.0) H Basophils (%) (Auto) 1.4 % (0.0-2.0) Sodium Level 140 MMOL/L (136-145) Potassium Level 3.8 MMOL/L (3.5-5.1) Chloride Level 104 MMOL/L (98-107) Carbon Dioxide Level 27 MMOL/L (21-32) Anion Gap 9 mmol/L (5-15) Blood Urea Nitrogen 17 mg/dL (7-18) Creatinine 1.0 MG/DL (0.55-1.30) Estimat Glomerular Filtration Rate mL/min (>60) Glucose Level 120 MG/DL (74-106) H Calcium Level 9.2 MG/DL (8.5-10.1) Total Bilirubin 0.3 MG/DL (0.2-1.0) Aspartate Amino Transf (AST/SGOT) 27 U/L (15-37) Alanine Aminotransferase (ALT/SGPT) 63 U/L (12-78) Alkaline Phosphatase 104 U/L (46-116) Troponin I 0.133 ng/mL (0.000-0.056) Total Protein 6.9 G/DL (6.4-8.2) Albumin 3.1 G/DL (3.4-5.0) L Globulin 3.8 g/dL Albumin/Globulin Ratio 0.8 (1.0-2.7) L Lipase 115 U/L (73-393) Plan Problems: (1) Abnormal LFTs (liver function tests) Assessment & Plan: This is a 78-year-old female with history as per HPI who was identified to have a leukocytosis and abnormal LFTs. She did have abdominal discomfort which has since resolved. Currently no nausea vomiting fever chills. Normal bowel movements and passing flatus. Etiology of abnormal LFTs unknown. AST ALT alk phos elevated but T bili normal. Potentially medication related versus hepatic/biliary. US noted Findings: Gallbladder demonstrates gallstones. No gallbladder wall thickening or pericholecystic fluid. Sonographic Summers's sign is negative. Common bile duct measures 4 mm in diameter. No intrahepatic biliary ductal dilatation. Liver demonstrates normal echogenicity, no focal abnormality. Portal vein and hepatic veins are patent. Pancreas is unremarkable. Spleen is unremarkable. Left kidney measures 9.5 cm in length. Right kidney measures 9.8 cm length. Both kidneys demonstrate normal echogenicity. 6 there is mild fullness of the left renal collecting system. No hydronephrosis on the right. No focal abnormality . Non-aneurysmal abdominal aorta . There is a small left pleural effusion incidentally no acute surgical intervention planned okay for diet from surgical standpoint appreciate cardiology input. Trend labs We will follow with recommendations Thank you for this consultation allowing me to participate in patient's care (2) Valvular heart disease (3) CHF (congestive heart failure) (4) Chest pain Skip Cm Apr 08, 2019 11:46
--- NOTE | 2019-04-08 11:54 | NUR ---
NURSE NOTES: Reported Dr. Garcia regarding elevation of D-dimer. No new order at this time. Will continue to monitor the patient.
--- NOTE | 2019-04-08 12:52 | NUR ---
NURSE NOTES: After having discussion with Dr. Cloud and Dr. Lambert, cancelled stress test. Dr. Jaramillo called in to the unit and asked the daughter's number. Will continue plan of care.
--- NOTE | 2019-04-08 13:08 | NUR ---
NURSE NOTES: Due to elevated blood pressure by holding morning dose of blood pressure medication prior to stress test, hydralazine IV given. Will continue plan of care.
--- NOTE | 2019-04-08 13:15 | NUR ---
NURSE NOTES: Received PTT level of 106. Per Cherry, the pharmacist, hold the Heparin drip for 30 minute and resume by decreasing 3 units/kg/hr. Will follow the protocol. Will continue plan of care.
--- NOTE | 2019-04-08 13:18 | NUR ---
NURSE NOTES: Notified Troponin of 0.[address] Lambert. No new order at this time. Will continue plan of care.
--- NOTE | 2019-04-08 14:05 | Diagnostic Imaging Report ---
Indication: Chest pain. TECHNIQUE: 10 mCi of technetium 99m Myoview was injected intravenously. SPECT imaging of the heart was performed in 3 planes. A stress portion of the examination was canceled by the can filler. COMPARISON: None FINDINGS: There is an apparent focus of hypoperfusion in the anteroseptal region. Findings are nonspecific. Ischemia is not excluded. IMPRESSION: Incomplete evaluation. Resting SPECT images showing nonspecific anteroseptal segment perfusion defect, which could be an infarction or ischemia.
--- NOTE | 2019-04-08 17:20 | Cardiology Report ---
APPROVED REPORT EXAM: Two-dimensional and M-mode echocardiogram with Doppler and color Doppler. INDICATION Chest Pain M-Mode DIMENSIONS IVSd0.8 (0.7-1.1cm)Left Atrium (MM)4.1 (1.6-4.0cm) LVDd5.3 (3.5-5.6cm)Aortic Root2.7 (2.0-3.7cm) PWd1.1 (0.7-1.1cm)Aortic Cusp Exc.1.5 (1.5-2.0cm) IVSs0.7 cm LVDs4.4 (2.5-4.0cm) PWs1.4 cm Luis septal dyskinesis. Mild left ventricular enlargement . Left ventricular ejection fraction estimated to be 25-30%. No evidence of left ventricular hypertrophy . No evidence of pericardial effusion. Mild left atrial enlargement . Right cardiac chamber sizes are within normal limits. Focal aortic valve sclerosis with reduced cusp excursion. Thickened mitral valve leaflets with decreased cusp excursion Mitral annulus and aortic root calcification. Normal pulmonic valve structure. Normal tricuspid valve structure. IVC at size 2.1 cm with slightly physiologic collapse. A color flow and spectral Doppler study was performed and revealed: Trace aortic insufficiency. Peak aortic valve gradient of 14 mm Hg and a mean of 7 mmHg. Aortic valve area 1.3 cm2 calculated by continuity equation. Mild to moderate mitral regurgitation. Mitral P1/2 time of 74 m/s is compatible with a mitral valve area of 1.3 cm2 Peak mitral valve diastolic gradient of 29 mmHg and a mean gradient of 7 mmHg Mitral inflow indicates restrictive pattern, implying severely elevated left atrial pressure (Grade III ). mild tricuspid regurgitation. Tricuspid systolic velocities suggests peak right ventricular systolic pressure of 46mmHg,consistent with mild pulmonary hypertension. Pulmonic regurgitation present.
--- NOTE | 2019-04-08 17:41 | Cardiology Report ---
APPROVED REPORT EKG Measurement Heart [id number] [id number] Atrial flutter with variable AV block Anterior infarct, age undetermined Abnormal ECG
--- NOTE | 2019-04-08 18:22 | NUR ---
NURSE NOTES: Notified Dr. Lambert regarding elevation of heart rate to 127. Per Dr. Lambert, no new order. Will continue to monitor the patient. Will continue plan of care.
--- NOTE | 2019-04-08 18:23 | NUR ---
NURSE NOTES: The patient would like to leave the hospital against medical advice. The patient's son and daughter, Irene at the bedside, also want the patient to leave hospital against medical advice. Leaving hospital against medical advice form signed by the patient, Tobias, and Rhona. The teaching was given to the patient and family regarding benifits of staying at the hospital for care. The risk and consequences involved in leaving the hospital explained to the patient and family members x3 . The patient and family members insisted leaving hospital. Made aware of the case of leaving the hospital against the medical advice to Dr. Jaramillo and Dr. Lambert. Made aware of the leave of the hospital against medical advice to the charge nurse and the nursing building repair maintenance supervisor. The patient's belongings checked with the patient and signed by the patient. Removed nameband, telebox, and IV. The patient got safely left the hospital with the family member's assistance.
--- NOTE | 2019-04-08 18:23 | NUR ---
NURSE NOTES: The patient would like to leave the hospital against medical advice. The patient's son and daughter, Venkata and Rhona at the bedside, and agreed to leave hospital against medical advice. Leaving hospital against medical advice form signed by the patient, Tobias and Rhona and witness by the nurse. Made aware of the leave of the hospital against medical advice to the charge nurse and the nursing survey supervisor. Made aware of the case of leaving the hospital against the medical advice to Dr. Jaramillo and Dr. Lambert. The risk and consequences involved in leaving the hospital explained to the patient and family members x3 but would like to leave against medical advice. The patient's belongings checked with the patient and signed by the patient. Removed nameband, telebox, and IV from the patient by the nurse. The patient got safely left the hospital with the family member's assistance.
--- NOTE | 2019-04-08 18:29 | General Progress Note ---
Assessment/Plan Status: stable Assessment/Plan: Pt admitted for chest pain r/o ACS and acute CHF exacerbation #Acute systolic CHF exacerbation #Chest pain 2/2 ACS -Cardiology consulted - Dr. Lambert -Pulmonary consulted (Dr. Garcia) -serial trop and EKG - now down trending -cont tele -Cont heparin gtt x 48 hours -Cont Lasix 40mg IV daily -daily weights -i/o -fluid restriction -TTE reviewed -Cont ASA, statin, losartan, aldactone and coreg -Dr. Lambert will set up lifevest -stress test today #HTN -Cont Hyzaar 50/12.5 -hydralazine PRN Code: Cast[place] Trimmer of note may not reflect time of Subjective Date patient seen: Apr 08, 2019 ROS Limited/Unobtainable: No Allergies: Coded Allergies: No Known Allergies (Unverified , 04/06/19) Subjective No acute overnight events, pt seen with daughter at bedside, has no complaints, states she feels better. on heparin Objective Last 24 Hour Vital Signs Date Time Temp Pulse Resp B/P (MAP) Pulse Ox O2 Delivery O2 Flow Rate FiO2 04/08/19 16:00 97.9 102 18 156/78 (104) 99 04/08/19 16:00 95 04/08/19 13:02 187/67 04/08/19 12:57 98.2 73 20 187/67 (107) 98 04/08/19 12:00 98.2 59 20 160/64 (96) 98 04/08/19 12:00 59 04/08/19 09:00 162/71 04/08/19 09:00 Room Air 04/08/19 08:00 61 04/08/19 08:00 97.7 59 18 162/71 (101) 98 04/08/19 07:00 67 16 96 Room Air 21 04/08/19 04:15 67 145/75 (98) 04/08/19 04:00 97.8 58 16 164/60 (94) 98 04/08/19 04:00 60 04/08/19 00:00 96.6 65 18 145/67 (93) 97 04/08/19 00:00 59 04/07/19 21:44 60 18 95 Room Air 21 04/07/19 21:00 Room Air 04/07/19 20:00 98.1 62 18 151/58 (89) 99 04/07/19 20:00 79 Intake and Output 04/07/19 04/08/19 18:59 06:59 Intake Total 160.755 ml 251.655 ml Balance 160.755 ml 251.655 ml Intake Oral 140 ml IV Total 20.755 ml 251.655 ml # Voids 3 6 # Bowel Movements 2 Laboratory Tests 04/08/19 00:15: Troponin I 0.156H 04/08/19 03:50: Activated Partial Thromboplast Time 58H 04/08/19 06:23: Troponin I 0.133H, White Blood Count 6.8, Red Blood Count 4.21, Hemoglobin 10.5L , Hematocrit 33.6L, Mean Corpuscular Volume 80, Mean Corpuscular Hemoglobin 25.0L, Mean Corpuscular Hemoglobin Concent 31.3L, Red Cell Distribution Width 15.0H, Platelet Count 349, Mean Platelet Volume 6.0L, Neutrophils (%) (Auto) 54.0, Lymphocytes (%) (Auto) 27.5, Monocytes (%) (Auto) 12.0H, Eosinophils (%) ( Auto) 5.2H, Basophils (%) (Auto) 1.4, Sodium Level 140, Potassium Level 3.8, Chloride Level 104, Carbon Dioxide Level 27, Anion Gap 9, Blood Urea Nitrogen 17 , Creatinine 1.0, Estimat Glomerular Filtration Rate , Glucose Level 120H, Calcium Level 9.2, Total Bilirubin 0.3, Aspartate Amino Transf (AST/SGOT) 27, Alanine Aminotransferase (ALT/SGPT) 63, Alkaline Phosphatase 104, Total Protein 6.9, Albumin 3.1L, Globulin 3.8, Albumin/Globulin Ratio 0.8L, Lipase 115 04/08/19 12:07: Troponin I 0.117H, Activated Partial Thromboplast Time 106H Height (Feet): 5 Height (Inches): 2.00 Weight (Pounds): 140 Objective General appearance: alert, cooperative, no distress, appears stated age Head: Normocephalic, without obvious abnormality, atraumatic Eyes: conjunctivae/corneas clear. PERRL, EOM's intact. Fundi benign Throat: Lips, mucosa, and tongue normal. Teeth and gums normal Neck: supple, symmetrical, trachea midline, no adenopathy, thyroid: not enlarged , symmetric, no tenderness/mass/nodules, no carotid bruit and no JVD Lungs: clear to auscultation bilaterally Heart: regular rate and rhythm, S1, S2 normal, no murmur, click, rub or gallop Abdomen: soft, non-tender. Bowel sounds normal. No masses, no organomegaly Extremities: extremities normal, atraumatic, no cyanosis, +1 b/l LE edema Pulses: 2+ and symmetric Skin: Skin color, texture, turgor normal. No rashes or lesions Neurologic: Grossly normal Marcelle Jaramillo MD Apr 08, 2019 18:29
--- NOTE | 2019-04-08 21:08 | Neurology Progress Note ---
Interim History Interim History ROS Limited/Unobtainable: No Interim History remains on heparin, no RIOS Review of Systems All Systems: reviewed and negative except above Objective Physical Exam Last Vital Signs Date Time Temp Pulse Resp B/P (MAP) Pulse Ox O2 Delivery O2 Flow Rate FiO2 04/08/19 16:00 97.9 102 18 156/78 (104) 99 04/08/19 09:00 Room Air 04/08/19 07:00 21 Laboratory Tests Test 04/08/19 00:15 04/08/19 03:50 04/08/19 06:23 04/08/19 12:07 Troponin I 0.156 ng/mL (0.000-0.056) 0.133 ng/mL (0.000-0.056) 0.117 ng/mL (0.000-0.056) Activated Partial Thromboplast Time 58 SEC (23-33) H 106 SEC (23-33) H White Blood Count 6.8 K/UL (4.8-10.8) Red Blood Count 4.21 M/UL (4.20-5.40) Hemoglobin 10.5 G/DL (12.0-16.0) L Hematocrit 33.6 % (37.0-47.0) L Mean Corpuscular Volume 80 FL (80-99) Mean Corpuscular Hemoglobin 25.0 PG (27.0-31.0) L Mean Corpuscular Hemoglobin Concent 31.3 G/DL (32.0-36.0) L Red Cell Distribution Width 15.0 % (11.6-14.8) H Platelet Count 349 K/UL (150-450) Mean Platelet Volume 6.0 FL (6.5-10.1) L Neutrophils (%) (Auto) 54.0 % (45.0-75.0) Lymphocytes (%) (Auto) 27.5 % (20.0-45.0) Monocytes (%) (Auto) 12.0 % (1.0-10.0) H Eosinophils (%) (Auto) 5.2 % (0.0-3.0) H Basophils (%) (Auto) 1.4 % (0.0-2.0) Sodium Level 140 MMOL/L (136-145) Potassium Level 3.8 MMOL/L (3.5-5.1) Chloride Level 104 MMOL/L (98-107) Carbon Dioxide Level 27 MMOL/L (21-32) Anion Gap 9 mmol/L (5-15) Blood Urea Nitrogen 17 mg/dL (7-18) Creatinine 1.0 MG/DL (0.55-1.30) Estimat Glomerular Filtration Rate mL/min (>60) Glucose Level 120 MG/DL (74-106) H Calcium Level 9.2 MG/DL (8.5-10.1) Total Bilirubin 0.3 MG/DL (0.2-1.0) Aspartate Amino Transf (AST/SGOT) 27 U/L (15-37) Alanine Aminotransferase (ALT/SGPT) 63 U/L (12-78) Alkaline Phosphatase 104 U/L (46-116) Total Protein 6.9 G/DL (6.4-8.2) Albumin 3.1 G/DL (3.4-5.0) L Globulin 3.8 g/dL Albumin/Globulin Ratio 0.8 (1.0-2.7) L Lipase 115 U/L (73-393) Impression/Recommendations Problems: (1) CHF (congestive heart failure) (2) Chest pain (3) Valvular heart disease (4) Abnormal LFTs (liver function tests) Status: stable Diagnostic Impression Stress test [place] per cards ok to cont heparin Aspirin statin Jj Herrera MD Apr 08, 2019 21:08
--- NOTE | 2019-04-10 10:48 | Discharge Summary ---
Discharge Summary Discharge Summary _ DATE OF ADMISSION: [] 04/06/2019 DATE OF DISCHARGE: [] 04/08/2019 Patient left AGAINST MEDICAL ADVICE REASON FOR ADMISSION: 78 years old female with past medical history of hypertension, history of open heart surgery for valvular disease , and hyperlipidemia presented with chief complaint of chest pressure and shortness of breath for 1 day. Symptoms started suddenly, worse with ambulation. Patient reports chest pressure in midsternum, nonradiating. Shortness of breath was worse while patient was lying down and improved with sitting up. Upon evaluation vital signs revealed elevated blood pressure 214/82. Chest x-ray demonstrated cardiomegaly without findings of overt CHF. Mild pulmonary vascular congestion noted. Mild leukocytosis with WBC 12.3, hemoglobin 11.5 hematocrit 37.1. Troponin elevated - 0.093. EKG revealed atrial flutter with variable AV block , heart rate 102 . D-dimer elevated 0.98. AST 113, ALT 141. Total bilirubin 0.4 . Patient was given handheld nebulizing treatment with bronchodilator. Patient received antihypertensive medication , aspirin and nitroglycerin. Patient also received IV Lasix. Patient reported improvement in symptoms after all these medication. Patient subsequently admitted for chest pain ,rule out acute coronary syndrome and acute CHF exacerbation to telemetry floor. CONSULTANTS: pharmaceutical salesperson Dr. Lambert neurologist Dr. Herrera pulmonary Dr. Garcia surgery Dr. Cm [facility]: Patient admitted to telemetry floor. Nutrition Internship followed. Patient continued on IV diuresis with Lasix with close monitoring of volumes and cardiorenal parameters. Echocardiogram revealed anteroseptal dyskinesia with ejection fraction estimated to be 25 to 30%. No evidence of pericardial effusion. No evidence of left ventricular hypertrophy. Mitral inflow indicated restrictive pattern, implying severely elevated left atrial pressure grade 3. Right ventricular systolic pressure of 46 , consistent with mild pulmonary hypertension. Mild to moderate mitral regurgitation. Per pharmaceutical salesperson, patient have dilated cardiomyopathy with severe systolic dysfunction. Serial troponin were monitored, remained elevated , but started to downtrend. Patient started on heparin drip for 48 hours. Per pharmaceutical salesperson, patient required LifeVest prior to discharge. Patient will need ICD placement. Patient was recommended to have cardiac catheterization to evaluate for coronary anatomy. Stress test was done with incomplete evaluation , resting SPECT images showed nonspecific anteroseptal segment perfusion defect, which could be an infarction or ischemia. Patient was on antiplatelet therapy with aspirin and statin. Guideline directed medical therapy for congestive heart failure was continued with beta-frank , MARCO inhibitor , Lasix and Aldactone. Blood pressure was managed with beta-frank , MARCO inhibitor , and Hyzaar. Hydralazine was on board as needed. Blood pressure improved. Hypertensive urgency present on admission , resolved. Desktop Support Associate followed. Pulse oximetry was stable on room air. Desktop Support Associate agreed with course of treatment. LFT were trending and AST down to normal and both AST and ALT down to normal. Surgeon seen the patient for abnormal LFT. Abdominal ultrasound revealed cholelithiasis , but was negative for dilated bile ducts. No acute surgical intervention was planned. Patient started on diet and able to tolerate it. Repeated AST and ALT within normal range. Patient decided to leave AGAINST MEDICAL ADVICE. Daughter and son were on the bedside. The risks and consequences of signing AGAINST MEDICAL ADVICE were discussed with patient in detail. Patient verbalized understanding, nevertheless signed AMA form and left. FINAL DIAGNOSES: Elevated troponin, NSTEMI Dilated cardiomyopathy with severe systolic dysfunction Acute systolic CHF exacerbation Hypertension Valvular heart disease Abnormal LFT-resolved I have been assigned to dictate discharge summary for this account. I was not involved in the patient's management. Mery Siu NP Apr 10, 2019 10:48
== END 2019-04-08 18:15 | disposition left against medical advice (07) | DRG 280 ==
LOC: EMR 07:35 → 2E 07:40 → EDBEDREQ 08:43 → SDSOVERFLO 04-07 16:41 → 2E 04-07 16:42
DX: I21.4 Non-ST elevation (NSTEMI) myocardial infarction (principal); G93.41 Metabolic encephalopathy; I50.21 Acute systolic (congestive) heart failure; I42.0 Dilated cardiomyopathy; I48.92 Unspecified atrial flutter; I11.0 Hypertensive heart disease with heart failure; K80.70 Calculus of gallbladder and bile duct without cholecystitis without obstruction; E78.5 Hyperlipidemia, unspecified; I27.20 Pulmonary hypertension, unspecified; I34.0 Nonrheumatic mitral (valve) insufficiency; I16.0 Hypertensive urgency; Z79.82 Long term (current) use of aspirin
CPT/HCPCS: 36415; 71045; 76700; 78451; 80048; 80053; 82550; 82553; 83690; 83880; 84484; 85025; 85379; 85610; 85730; 93005; 93306; 94640; 94664; 96374; 96375; 99285; J2785; J8499